=== PATIENT | female | born 1930 | race Caucasian/White ===

== ENCOUNTER 2017-12-30 17:47 | Inpatient (IN) | payer OTHER ==
[~2017-12-30] VITALS: Ht 162.6 cm; Wt 58.7 kg
[2017-12-30] MEDS ORDERED: SODIUM CHLORIDE 0.9% 1000ML 1,000 ML IV STA ×2 (18:00→18:59)
--- NOTE | 2017-12-30 18:36 | DIAGNOSTIC IMAGING REPORT ---
SINGLE VIEW CHEST CLINICAL HISTORY: Change in mental status. FINDINGS: An AP, portable, upright chest radiograph is obtained. No prior studies are available for comparison at the time of dictation. The examination is degraded by portable technique and patient rotation. The heart is top normal for projection and there is atherosclerotic calcification of the thoracic aorta. The pulmonary vasculature is noncongested. The mitral annulus is densely calcified. Nonspecific interstitial thickening is likely chronic. There is mild elevation of the right hemidiaphragm and bibasilar atelectasis. No airspace consolidation or large pleural effusion is identified. No pneumothorax is seen. The skeletal structures are osteopenic. Degenerative change and scoliosis are noted in the thoracic spine. IMPRESSION: No acute cardiopulmonary abnormality. Electronically signed by: Jesus Marinelli M.D. 12/30/2017 6:35 PM Dictated Date/Time: 12/30/2017 6:34 PM
[2017-12-30 18:40] LABS: BASO % 0.3 %; BASO ABS # 0.03 K/uL (0-0.2); EOS % 0.9 %; EOS ABS # 0.09 K/uL (0-0.5); HEMATOCRIT 45.2 % (37-47); HEMOGLOBIN 14.1 g/dL (12.0-16.0); IG# 0.03 K/uL (0.00-0.02); LYMPH % 17.4 %; LYMPH ABS # 1.79 K/uL (1.2-3.4); MEAN CELL VOLUME 90.8 fL (80-100); MEAN CORPUSCULAR HEMOGLOBIN 28.3 pg (25-34); MEAN CORPUSCULAR HGB CONC 31.2 g/dl (32-36); MEAN PLATELET VOLUME 9.9 fL (7.4-10.4); MONO ABS # 0.72 K/uL (0.11-0.59); NEUT % 74.1 %; NEUT ABS # 7.65 K/uL (1.4-6.5); PLATELET COUNT 307 K/uL (130-400); RED CELL DISTRIBUTION WIDTH CV 15.7 % (11.5-14.5); RED CELL DISTRIBUTION WIDTH SD 52.1 fL (36.4-46.3); WHITE BLOOD COUNT 10.31 K/uL (4.8-10.8)
[2017-12-30 18:54] LABS: PTT PATIENT 23.3 SECONDS (21.0-31.0)
[2017-12-30 18:57] LABS: ALBUMIN 3.6 gm/dl (3.4-5.0); ALKALINE PHOSPHATASE 154 U/L (45-117); ALT/SGPT 17 U/L (12-78); AST/SGOT 7 U/L (15-37); BLOOD UREA NITROGEN 62 mg/dl (7-18); CALCIUM 10.1 mg/dl (8.5-10.1); CARBON DIOXIDE 28 mmol/L (21-32); CREATININE 2.12 mg/dl (0.60-1.20); GLUCOSE 655 mg/dl (70-99); POTASSIUM 4.4 mmol/L (3.5-5.1); SODIUM 150 mmol/L (136-145)
[2017-12-30] MEDS ORDERED: INSULIN IV INFUSION PROTOCOL STA ×2 (18:59→22:58)
[2017-12-30] MEDS ORDERED: MODERATE STRESS LEVEL ONE ×2 (19:00→23:00)
[2017-12-30] MEDS ORDERED: INSULIN ASPART 100 UNITS/ML 3 ML PEN SC SCH (19:00)
[2017-12-30] MEDS ORDERED: DKA GOAL RANGE 150-250 mg/dl 1 EA ONE (19:00)
[2017-12-30] MEDS ORDERED: PATIENT'S ALLERGY INFO NEEDS ENTERED SCH ×2 (19:10→19:15)
[2017-12-30] MEDS ORDERED: CEFTRIAXONE SOD INJ 1 GM ADDVIAL IV STA ×2 (19:23→19:45)
--- NOTE | 2017-12-30 19:32 | DIAGNOSTIC IMAGING REPORT ---
CT SCAN OF THE BRAIN WITHOUT IV CONTRAST CLINICAL HISTORY: Change in mental status. COMPARISON STUDY: No priors. TECHNIQUE: Unenhanced axial CT scan of the brain is performed from the vertex to the skull base. A dose lowering technique was utilized adhering to the principles of ALARA. FINDINGS: Brain parenchyma: There are age-related involutional changes noting moderate patchy subcortical and periventricular microangiopathic change. There is no hemorrhage, mass effect, or evidence of acute territorial ischemia by CT criteria. Kim-white matter is preserved. No extra-axial fluid collection is seen. Mineralization is noted in the basal ganglia. Ventricles, sulci, cisterns: Prominent secondary to involutional change. Intracranial vasculature: There is atherosclerotic calcification of the cavernous carotid arteries. Calvarium: Unremarkable. Sinuses and mastoids: Fluid is noted in the right sphenoid sinus. The remaining visualized paranasal sinuses are clear. There are trace mastoid effusions. Orbits: The bony orbits are grossly intact. IMPRESSION: There is no hemorrhage, mass effect, or evidence of acute territorial ischemia by CT criteria. Electronically signed by: Jesus Marinelli M.D. 12/30/2017 7:30 PM Dictated Date/Time: 12/30/2017 7:28 PM
--- NOTE | 2017-12-30 19:54 | DIAGNOSTIC IMAGING REPORT ---
CT SCAN OF THE ABDOMEN AND PELVIS WITHOUT IV CONTRAST CLINICAL HISTORY: Generalized abdominal pain. COMPARISON STUDY: No priors. TECHNIQUE: CT scan of the abdomen and pelvis is performed from the lung bases to the proximal femora. Images are reviewed in the axial, sagittal, and coronal planes. IV contrast was not administered for this examination as per the referring clinician. Note that the examination was performed in significantly suboptimal fashion without oral and IV contrast. The examination is also degraded by streak artifact from the arms which could not be elevated above the abdomen as well as by motion artifact.. A dose lowering technique was utilized adhering to the principles of ALARA. CT DOSE: 852.75 mGy.cm FINDINGS: Lung bases: The heart is normal in size and without pericardial effusion. The coronary arteries and mitral annulus are densely calcified. The lung bases are clear. There is a small hiatal hernia. Liver: The unenhanced liver is normal in size, contour, and attenuation. There is no intrahepatic biliary ductal dilatation. Gallbladder: Unremarkable. Spleen: Normal in size and attenuation. Pancreas: The unenhanced pancreas is atrophic and grossly unremarkable. Adrenal glands: Unremarkable. Kidneys: The unenhanced kidneys are atrophic and without hydronephrosis. There is a staghorn calculus in the right kidney. This measures up to 3.0 cm in maximum dimension. Mild urothelial thickening is noted in the right renal pelvis mild stranding suggested in the adjacent fat. No left renal calculi are identified. A calcification in the right hemipelvis on image #342 is likely posterior to the right ureter. There is no clear evidence of ureteral stone. A 3.2 cm cyst arises from the lower pole of the right kidney. Abdominal vasculature: The abdominal aorta is normal in course and caliber noting advanced atherosclerotic calcification. Bowel: There is rectosigmoid fecal impaction. Moderate constipation is observed. There is moderate to advanced colonic diverticulosis without CT evidence of acute diverticulitis. No bowel obstruction is seen. The appendix is not clearly identified. 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 Peritoneum: There is no intraperitoneal free air or abdominal ascites. There is a large fat-containing umbilical hernia. A fat-containing supraumbilical hernia is also identified. Lymphadenopathy: None. Pelvic viscera: The bladder is partially decompressed and grossly unremarkable. The uterus is surgically absent. No adnexal lesion is seen. Skeletal structures: The skeletal structures are osteopenic. There is moderate lumbosacral spondylosis and scoliosis. No lytic or blastic lesions are seen. IMPRESSION: 1. Suboptimal examination without oral and IV contrast. The examination is also compromised by streak and motion artifact. 2. There is a 3.0 cm staghorn calculus identified in the right renal pelvis. No hydronephrosis is seen. There is mild associated urothelial thickening with mild stranding in the parapelvic fat. Correlate clinically and with urinalysis for evidence of superimposed urinary tract infection. 3. No left renal calculi are identified. 4. There is rectosigmoid fecal impaction and moderate constipation. No bowel obstruction is seen. 5. Moderate to advanced colonic diverticulosis without CT evidence of acute diverticulitis. 6. Additional findings as above. Electronically signed by: Jesus Marinelli M.D. 12/30/2017 7:53 PM Dictated Date/Time: 12/30/2017 7:43 PM
[2017-12-30] MEDS ORDERED: GLUCOSE 10 TABS/TUBE PO PRN (20:00)
[2017-12-30] MEDS ORDERED: GLUCOSE 40% GEL 15 GM TUBE PO PRN (20:00)
[2017-12-30] MEDS ORDERED: DEXTROSE 50% 50 ML SYR IV PRN (20:00)
[2017-12-30] MEDS ORDERED: INSULIN REGULAR 250 UNITS in SODIUM CHLORIDE 0.9% 250ML 250 ML IV SCH (20:00)
[2017-12-30] MEDS ORDERED: NovoLIN R BOLUS FROM BAG IV ONE (20:00)
[2017-12-30] MEDS ORDERED: GLUCAGON FOR INJ 1 MG VIAL SQ PRN (20:00)
[2017-12-30] MEDS ORDERED: ARC10 PO (20:27)
[2017-12-30] MEDS ORDERED: MOML PO (20:27)
[2017-12-30] MEDS ORDERED: MEMA1CAP7 PO (20:27)
[2017-12-30] MEDS ORDERED: SODIENE PR (20:27)
[2017-12-30] MEDS ORDERED: STOMAHESIVE TOP (20:27)
[2017-12-30] MEDS ORDERED: LEVO25TA5 PO (20:27)
[2017-12-30] MEDS ORDERED: INSU1INJ33 SQ (20:27)
[2017-12-30] MEDS ORDERED: RANI150T85 PO (20:27)
[2017-12-30] MEDS ORDERED: EMPA1TAB PO (20:27)
[2017-12-30] MEDS ORDERED: NVLG SQ (20:27)
[2017-12-30] MEDS ORDERED: ERGO500011 PO (20:27)
[2017-12-30] MEDS ORDERED: MENTOIN12 TOP (20:27)
[2017-12-30] MEDS ORDERED: GABA-112 PO (20:27)
[2017-12-30] MEDS ORDERED: ACET-1256 PO (20:27)
[2017-12-30] MEDS ORDERED: SENN-83 PO (20:27)
[2017-12-30] MEDS ORDERED: SITA50TA5 PO (20:27)
[2017-12-30] MEDS ORDERED: ZINC20OI TOP (20:27)
[2017-12-30] MEDS ORDERED: ATOR10TA82 PO (20:27)
[2017-12-30] MEDS ORDERED: DULO-24 PO (20:27)
[2017-12-30] MEDS ORDERED: BISA10SU7 RE (20:27)
[2017-12-30] MEDS ORDERED: ASPI81TA28 PO (20:27)
[2017-12-30] MEDS ORDERED: ACT30 PO (20:27)
[2017-12-30] MEDS ORDERED: LOSA1TAB PO (20:27)
[2017-12-30 22:15] LABS: CALCIUM 9.4 mg/dl (8.5-10.1); CREATININE 1.54 mg/dl (0.60-1.20); POTASSIUM 3.9 mmol/L (3.5-5.1)
[2017-12-30] MEDS ORDERED: SODIUM CHLORIDE 0.45% 1000ML 1,000 ML IV STA (22:59)
[2017-12-30] MEDS ORDERED: CEFEPIME IV 2,000 MG in DEXTROSE 5% 100ML 100 ML IV ONE (23:00)
[2017-12-30] MEDS ORDERED: INSULIN PROTOCOL GOAL RANGE ONE (23:00)
[2017-12-30] MEDS ORDERED: LANTUS PER UNIT CHARGE SQ STA (23:11)
[2017-12-30] MEDS ORDERED: CEFEPIME IV 2,000 MG in SYRINGE 7.5 ML IV ONE (23:15)
[2017-12-30] MEDS ORDERED: SODIUM CHLORIDE 0.9% 500ML 500 ML IV STA (23:36)
--- NOTE | 2017-12-30 23:36 | EMERGENCY ROOM VISIT NOTE ---
History Report prepared by Suzanne: Pro Tanner Under the Supervision of: Dr. Yousuf Rodney D.O. First contact with patient: 17:51 Stated Complaint: AMS History of Present Illness The patient is a 87 year old female who presents to the Emergency Room with complaints of constant altered mental status starting around 0600 this morning. Per the EMS, the patient has been responding to verbal and painful stimuli and has garbled speech. The patient's blood pressure was 60s and then 90s systolic. The patient currently lives in [facility], and per the staff there, the patient is normally awake and walking around. She usually makes sentences, though they usually do not make sense. They deny any new fever, cough, or runny nose. The history is limited secondary to altered mental status. The patient is a DNR and DNI Source of History: EMS History Limited By: AMS Onset: 0600 Position: other (global) Quality: other (altered mental status) Timing: constant Review of Systems HPI is limited secondary to altered mental status. Past Medical & Surgical History is limited secondary to altered mental status. Family History History is limited secondary to altered mental status. Social History Housing Status: senior living Occupation Status: retired Current/Historical Medications Scheduled Aspirin (Aspirin Ec), 81 MG PO DAILY Atorvastatin (Lipitor), 10 MG PO HS Bisacodyl (Bisac-Evac), 10 MG RE PRN UD Donepezil HCl (Donepezil HCl), 10 MG PO HS Duloxetine Hcl (Cymbalta), 40 MG PO DAILY Empagliflozin (Jardiance), 10 MG PO DAILY Ergocalciferol (Vitamin D 68241 Unit), 1 TAB PO 2XSMONTH Gabapentin (Neurontin), 100 MG PO QAM Insulin Aspart (Novolog), 10 UNITS SQ TODAY Insulin Degludec (Tresiba Flextouch), 15 UNIT SQ HS Levothyroxine Sodium (Levothyroxine Sodium), 1 TAB PO DAILY Losartan Potassium (Cozaar), 25 MG PO HS Magnesium Hydroxide (Milk Of Magnesia), 30 ML PO PRN UD Memantine Hcl (Namenda Xr), 28 MG PO DAILY Menthol-Zinc Oxide (Risamine), 1 APPLN TOP QS Pioglitazone (Actos), 1 TAB PO DAILY Ranitidine (Zantac), 150 MG PO HS Sennosides-Docusate Sodium (Senexon-S), 2 TABS PO HS Sitagliptin-Metformin Hcl (Janumet), 1 TAB PO BID Zinc Oxide (Topical) (Zinc Oxide), 1 APPLN TOP HS [Stomahesive Pow], 1 APPLN TOP HS Scheduled PRN Acetaminophen (Tylenol), 1,000 MG PO Q6 PRN for Pain Sodium Phosphate/Biphosphate (Fleet Enema), 1 EA SD DAILY PRN for Constipation Allergies Coded Allergies: Penicillins (Verified Allergy, Unknown, UNKNOWN, 12/30/17) Physical Exam Vital Signs Date Time Temp Pulse Resp B/P (MAP) Pulse Ox O2 Delivery O2 Flow Rate FiO2 12/30/17 22:42 58 20 97 12/30/17 22:37 60 17 94 12/30/17 22:32 60 21 95 12/30/17 22:31 126/95 12/30/17 22:30 68 12/30/17 22:27 58 17 97 12/30/17 22:22 54 13 96 12/30/17 22:17 75 14 97 12/30/17 22:12 65 14 98 Room Air 12/30/17 22:07 70 18 97 Room Air 12/30/17 22:02 77 23 81 12/30/17 22:01 136/79 12/30/17 21:57 65 18 96 12/30/17 21:52 73 15 99 12/30/17 21:47 81 16 78 12/30/17 21:42 73 17 90 12/30/17 21:37 69 18 69 12/30/17 21:32 76 15 142/71 96 12/30/17 21:31 82 16 142/71 97 12/30/17 21:27 72 25 99 12/30/17 21:22 71 17 97 12/30/17 21:17 68 15 99 12/30/17 21:12 65 19 91 12/30/17 21:07 75 19 12/30/17 21:02 67 15 110/51 94 12/30/17 20:57 74 15 81 12/30/17 20:52 76 16 87 12/30/17 20:47 66 17 96 12/30/17 20:42 79 15 92 12/30/17 20:37 67 25 96 12/30/17 20:32 69 22 12/30/17 20:31 140/56 3/14/18 20:27 68 21 12/30/17 20:26 136/87 12/30/17 20:22 71 19 92 12/30/17 20:17 68 17 96 12/30/17 20:12 68 20 93 12/30/17 20:07 66 20 94 12/30/17 20:02 70 13 94 12/30/17 19:57 68 17 93 12/30/17 19:52 71 17 94 12/30/17 19:47 75 16 93 12/30/17 19:42 79 23 96 12/30/17 19:37 93 21 97 12/30/17 19:32 66 18 90 12/30/17 19:31 12/30/17 19:07 88 19 100 12/30/17 19:02 106 26 99 12/30/17 18:57 112 17 100 12/30/17 18:52 108 22 125/62 94 Oxymask 3.0 12/30/17 18:47 117 17 96 12/30/17 18:44 112 12/30/17 18:42 124 15 96 12/30/17 18:37 117 16 93 12/30/17 18:32 101 17 94 12/30/17 18:31 125/62 12/30/17 18:30 110/57 12/30/17 18:30 114 18 110/57 97 Oxymask 3.0 12/30/17 18:27 123 19 92 12/30/17 18:22 88 17 98 12/30/17 18:18 103 12/30/17 18:17 90 16 91 12/30/17 18:16 36.8 116 24 130/61 99 Oxymask 3.0 12/30/17 18:12 121 18 87 12/30/17 18:08 130/61 Physical Exam GENERAL: Laying in bed moaning and moving the upper extremities intermittently. EYE EXAM: normal conjunctiva. PERRL and EOM's intact. OROPHARYNX: no exudate, no erythema, lips, buccal mucosa, and tongue normal and mucous membranes are moist NECK: supple, no nuchal rigidity, no adenopathy, non-tender LUNGS: Lung sounds coarse at the bases. Normal chest wall mechanics HEART: +MAX, +S1, +S2 ABDOMEN: abdomen soft, non-tender, normo-active bowel sounds, no masses, no rebound or guarding. BACK: Back is symmetrical on inspection and there is no deformity SKIN: no rashes and no bruising UPPER EXTREMITIES: upper extremities are grossly normal. LOWER EXTREMITIES: No pitting edema. NEURO EXAM: Awakens to noise and touch and moans. Intermittently states words. Moving all extremities, non-focal. Medical Decision & Procedures ER Provider Diagnostic Interpretation: Radiology results as stated below per my review and the radiologist's interpretation: CT SCAN OF THE BRAIN WITHOUT IV CONTRAST CLINICAL HISTORY: Change in mental status. COMPARISON STUDY: No priors. TECHNIQUE: Unenhanced axial CT scan of the brain is performed from the vertex to the skull base. A dose lowering technique was utilized adhering to the principles of ALARA. FINDINGS: Brain parenchyma: There are age-related involutional changes noting moderate patchy subcortical and periventricular microangiopathic change. There is no hemorrhage, mass effect, or evidence of acute territorial ischemia by CT criteria. Kim-white matter is preserved. No extra-axial fluid collection is seen. Mineralization is noted in the basal ganglia. Ventricles, sulci, cisterns: Prominent secondary to involutional change. Intracranial vasculature: There is atherosclerotic calcification of the cavernous carotid arteries. Calvarium: Unremarkable. Sinuses and mastoids: Fluid is noted in the right sphenoid sinus. The remaining visualized paranasal sinuses are clear. There are trace mastoid effusions. Orbits: The bony orbits are grossly intact. IMPRESSION: There is no hemorrhage, mass effect, or evidence of acute territorial ischemia by CT criteria. Electronically signed by: Jesus Marinelli M.D. 12/30/2017 7:30 PM Dictated Date/Time: 12/30/2017 7:28 PM SINGLE VIEW CHEST CLINICAL HISTORY: Change in mental status. FINDINGS: An AP, portable, upright chest radiograph is obtained. No prior studies are available for comparison at the time of dictation. The examination is degraded by portable technique and patient rotation. The heart is top normal for projection and there is atherosclerotic calcification of the thoracic aorta. The pulmonary vasculature is noncongested. The mitral annulus is densely calcified. Nonspecific interstitial thickening is likely chronic. There is mild elevation of the right hemidiaphragm and bibasilar atelectasis. No airspace consolidation or large pleural effusion is identified. No pneumothorax is seen. The skeletal structures are osteopenic. Degenerative change and scoliosis are noted in the thoracic spine. IMPRESSION: No acute cardiopulmonary abnormality. Electronically signed by: Jesus Marinelli M.D. 12/30/2017 6:35 PM Dictated Date/Time: 12/30/2017 6:[address] SCAN OF THE ABDOMEN AND PELVIS WITHOUT IV CONTRAST CLINICAL HISTORY: Generalized abdominal pain. COMPARISON STUDY: No priors. TECHNIQUE: CT scan of the abdomen and pelvis is performed from the lung bases to the proximal femora. Images are reviewed in the axial, sagittal, and coronal planes. IV contrast was not administered for this examination as per the referring clinician. Note that the examination was performed in significantly suboptimal fashion without oral and IV contrast. The examination is also degraded by streak artifact from the arms which could not be elevated above the abdomen as well as by motion artifact.. A dose lowering technique was utilized adhering to the principles of ALARA. CT DOSE: 852.75 mGy.cm FINDINGS: Lung bases: The heart is normal in size and without pericardial effusion. The coronary arteries and mitral annulus are densely calcified. The lung bases are clear. There is a small hiatal hernia. Liver: The unenhanced liver is normal in size, contour, and attenuation. There is no intrahepatic biliary ductal dilatation. Gallbladder: Unremarkable. Spleen: Normal in size and attenuation. Pancreas: The unenhanced pancreas is atrophic and grossly unremarkable. Adrenal glands: Unremarkable. Kidneys: The unenhanced kidneys are atrophic and without hydronephrosis. There is a staghorn calculus in the right kidney. This measures up to 3.0 cm in maximum dimension. Mild urothelial thickening is noted in the right renal pelvis mild stranding suggested in the adjacent fat. No left renal calculi are identified. A calcification in the right hemipelvis on image #342 is likely posterior to the right ureter. There is no clear evidence of ureteral stone. A 3.2 cm cyst arises from the lower pole of the right kidney. Abdominal vasculature: The abdominal aorta is normal in course and caliber noting advanced atherosclerotic calcification. Bowel: There is rectosigmoid fecal impaction. Moderate constipation is observed. There is moderate to advanced colonic diverticulosis without CT evidence of acute diverticulitis. No bowel obstruction is seen. The appendix is not clearly identified. 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 Peritoneum: There is no intraperitoneal free air or abdominal ascites. There is a large fat-containing umbilical hernia. A fat-containing supraumbilical hernia is also identified. Lymphadenopathy: None. Pelvic viscera: The bladder is partially decompressed and grossly unremarkable. The uterus is surgically absent. No adnexal lesion is seen. Skeletal structures: The skeletal structures are osteopenic. There is moderate lumbosacral spondylosis and scoliosis. No lytic or blastic lesions are seen. IMPRESSION: 1. Suboptimal examination without oral and IV contrast. The examination is also compromised by streak and motion artifact. 2. There is a 3.0 cm staghorn calculus identified in the right renal pelvis. No hydronephrosis is seen. There is mild associated urothelial thickening with mild stranding in the parapelvic fat. Correlate clinically and with urinalysis for evidence of superimposed urinary tract infection. 3. No left renal calculi are identified. 4. There is rectosigmoid fecal impaction and moderate constipation. No bowel obstruction is seen. 5. Moderate to advanced colonic diverticulosis without CT evidence of acute diverticulitis. 6. Additional findings as above. Electronically signed by: Jesus Marinelli M.D. 12/30/2017 7:53 PM Dictated Date/Time: 12/30/2017 7:43 PM Laboratory Results 12/30/17 18:00 Red Blood Count 4.98, Mean Corpuscular Volume 90.8, Mean Corpuscular Hemoglobin 28.3, Mean Corpuscular Hemoglobin Concent 31.2, Mean Platelet Volume 9.9, Neutrophils (%) (Auto) 74.1, Lymphocytes (%) (Auto) 17.4, Monocytes (%) (Auto) 7.0, Eosinophils (%) (Auto) 0.9, Basophils (%) (Auto) 0.3, Neutrophils # (Auto) 7.65, Lymphocytes # (Auto) 1.79, Monocytes # (Auto) 0.72, Eosinophils # (Auto) 0.09, Basophils # (Auto) 0.03 12/30/17 21:33 Test 12/30/17 18:00 12/30/17 18:06 12/30/17 18:47 12/30/17 19:34 White Blood Count 10.31 K/uL (4.8-10.8) Red Blood Count 4.98 M/uL (4.2-5.4) Hemoglobin 14.1 g/dL (12.0-16.0) Hematocrit 45.2 % (37-47) Mean Corpuscular Volume 90.8 fL (80-100) Mean Corpuscular Hemoglobin 28.3 pg (25-34) Mean Corpuscular Hemoglobin Concent 31.2 g/dl (32-36) Platelet Count 307 K/uL (130-400) Mean Platelet Volume 9.9 fL (7.4-10.4) Neutrophils (%) (Auto) 74.1 % Lymphocytes (%) (Auto) 17.4 % Monocytes (%) (Auto) 7.0 % Eosinophils (%) (Auto) 0.9 % Basophils (%) (Auto) 0.3 % Neutrophils # (Auto) 7.65 K/uL (1.4-6.5) Lymphocytes # (Auto) 1.79 K/uL (1.2-3.4) Monocytes # (Auto) 0.72 K/uL (0.11-0.59) Eosinophils # (Auto) 0.09 K/uL (0-0.5) Basophils # (Auto) 0.03 K/uL (0-0.2) RDW Standard Deviation 52.1 fL (36.4-46.3) RDW Coefficient of Variation 15.7 % (11.5-14.5) Immature Granulocyte % (Auto) 0.3 % Immature Granulocyte # (Auto) 0.03 K/uL (0.00-0.02) Prothrombin Time 10.3 SECONDS (9.0-12.0) Prothromb Time International Ratio 1.0 (0.9-1.1) Activated Partial Thromboplast Time 23.3 SECONDS (21.0-31.0) Partial Thromboplastin Ratio 0.9 Osmolality 379 mOsm/kg (280-300) Total Bilirubin 0.2 mg/dl (0.2-1) Direct Bilirubin < 0.1 mg/dl (0-0.2) Aspartate Amino Transf (AST/SGOT) 7 U/L (15-37) Alanine Aminotransferase (ALT/SGPT) 17 U/L (12-78) Alkaline Phosphatase 154 U/L (45-117) Troponin I < 0.015 ng/ml (0-0.045) Total Protein 8.0 gm/dl (6.4-8.2) Albumin 3.6 gm/dl (3.4-5.0) Beta-Hydroxybutyric Acid 1.68 mg/dL (0.2-2.81) Procalcitonin 0.13 ng/ml (0-0.5) Bedside Lactic Acid Venous 4.39 mmol/L (0.90-1.70) Urine Color YELLOW Urine Appearance TURBID (CLEAR) Urine pH 5.0 (4.5-7.5) Urine Specific [place] 1.031 (1.000-1.030) Urine Protein 2+ (NEG) Urine Glucose (UA) 3+ (NEG) Urine Ketones NEG (NEG) Urine Occult Blood 3+ (NEG) Urine Nitrite NEG (NEG) Urine Bilirubin NEG (NEG) Urine Urobilinogen NEG (NEG) Urine Leukocyte Esterase MODERATE (NEG) Urine WBC (Auto) >30 /hpf (0-5) Urine RBC (Auto) 10-30 /hpf (0-4) Urine Hyaline Casts (Auto) 1-5 /lpf (0-5) Urine Epithelial Cells (Auto) >30 /lpf (0-5) Urine Bacteria (Auto) 2+ (NEG) Urine Pathogenic Casts /lpf (0) Urine Yeast (Auto) BUDDING (NONE PRSENT) Bedside Glucose 402 mg/dl (70-90) Test 12/30/17 19:41 12/30/17 21:33 12/30/17 23:19 Venous Blood pH 7.31 (7.36-7.41) Venous Blood Partial Pressure CO2 60 mmHg (38.0-50.0) Venous Blood Partial Pressure O2 31 mmHg Venous Blood HCO3 30 mmol/L Venous Blood Oxygen Saturation < 60.0 % Venous Blood Base Excess 1.9 mEq/L Anion Gap 4.0 mmol/L (3-11) Est Creatinine Clear Calc Drug Dose 21.8 ml/min Estimated GFR () 34.6 Estimated GFR (Non- 29.8 BUN/Creatinine Ratio 35.3 (10-20) Lactic Acid Level 3.2 mmol/L (0.4-2.0) Calcium Level 9.4 mg/dl (8.5-10.1) Magnesium Level 3.0 mg/dl (1.8-2.4) Thyroid Stimulating Hormone (TSH) 0.686 uIu/ml (0.300-4.500) Laboratory results per my review. Medications Administered Medications (Trade) Dose Ordered Sig/Mike Route Start Time Stop Time Status Last Admin Dose Admin Sodium Chloride 1,000 ml @ 999 mls/hr Q1H1M STAT IV 12/30/17 18:00 12/30/17 19:00 DC 12/30/17 18:55 999 MLS/HR Sodium Chloride 1,000 ml @ 999 mls/hr Q1H1M STAT IV 12/30/17 18:59 12/30/17 19:59 DC 12/30/17 20:26 999 MLS/HR Ceftriaxone Sodium (Rocephin Inj) 1 gm NOW STAT IV 12/30/17 19:23 12/30/17 19:24 DC 12/30/17 20:29 1 GM Insulin Human Regular (NovoLIN R BOLUS FROM BAG) 3 unit ONE ONCE IV 12/30/17 20:00 12/30/17 20:01 DC 12/30/17 20:24 3 UNIT Insulin Human Regular 250 units/ Sodium Chloride 252.5 ml @ 0 mls/hr Q24H IV 12/30/17 20:00 01/29/18 19:59 12/30/17 20:24 4 MLS/HR ECG Per My Interpretation Indication: altered mental status Rate (beats per minute): 122 Rhythm: atrial fibrillation (with RVR) Findings: left axis deviation Change: Repeat EKG: Sinus rhythm at 91bpm. Left axis deviation. Inferior Q waves. ED Course ED COURSE: Vital signs were reviewed and showed hypoxia and tachycardia. The patients medical record was reviewed The above diagnostic studies were performed and reviewed. ED treatments and interventions as stated above. 1751: The patient was evaluated in room B10. A complete history and physical examination was performed. 1800: Sodium Chloride 1000 ml @ 999 mls/hr IV 1859: Sodium Chloride 1000 ml @ 999 mls/hr IV 1923: Rocephin 1 gm IV 2000: Insulin Human Regular Drip and Bolus 3 units 4mls/hr IV 2020: Upon reevaluation, the patient is doing okay.I discussed my findings with the patient. Based on the patients age, coexisting illnesses, exam and lab findings the decision to treat as an inpatient was made. The patient remained stable while under my care. The patient will be evaluated for further management. 2110: I reviewed the patient's case with Dr. Josiah Villafuerte Hospitalist. He will evaluate the patient for further management. Medical Decision Differential diagnoses includes but is not limited to toxic, metabolic, infectious, traumatic, cardiac, neurologic, hematologic, psychiatric and inflammatory etiologies. Patient is an 87-year-old female who presents the ER for altered mental status from the senior living. She is normally awake alert talking and walking without difficulty. She has been confused with decreased mentation and responsiveness which has been worsening since 6 AM. She is a DNR/DNI. CBC was fairly unremarkable. BMP remarkable for hypernatremia along with a creatinine of 2.1. Glucose was 655. LFTs and bilirubin are unremarkable. Troponin was negative. Lactic acid was significantly elevated at 4.4. VBG shows a pH of 7.3. UA does suggest UTI. CT of the abdomen and pelvis along with head was fairly unremarkable. Chest x-ray shows no focal infiltrate. Initially upon presentation she was slightly hypotensive. She was given 2 L normal saline. EKG went from a sinus rhythm to A. fib with RVR. Did not give rate control medications as focused on hydration and fluid correction as this improved heart rate. I did give her broad-spectrum antibiotics and accommodation with 2 L of fluid and placed on insulin drip following an insulin bolus. Patient was admitted to internal medicine with sepsis secondary to UTI and altered mental status with hyperglycemia. She did convert back to normal sinus rhythm prior to admission. She did remain hypoxic on the ER remained on 2-3 L nasal cannula. Medication Reconcilliation Current Medication List: was personally reviewed by me Blood Pressure Screening Patient's blood pressure: Elevated blood pressure Monitored by the hospitalist Consults Time Called: 2014 Consulting Physician: Dr. Josiah Villafuerte [facility]an Returned Call: 2110 I reviewed the patient's case with Dr. Josiah Lakhani. He will evaluate the patient for further management. Impression Primary Impression: Altered mental status Additional Impressions: Hyperglycemia TREE (acute kidney injury) Elevated lactic acid level Critical Care I have personally spent 75 minutes of critical care time in the direct management of this patient. This includes bedside care, interpretation of diagnostic studies, and testing, discussion with consultants, patient, and family members, and other required patient management activities. This 75 minutes is in excess of all separately billable procedures. Scribe Attestation The scribe's documentation has been prepared under my direction and personally reviewed by me in its entirety. I confirm that the note above accurately reflects all work, treatment, procedures, and medical decision making performed by me. Departure Information Dispostion Being Evaluated By Hospitalist Referrals Amparo Alvarez M.D. (PCP) Problem Qualifiers Primary Impression: Altered mental status Altered mental status type: unspecified Qualified Codes: R41.82 - Altered mental status, unspecified
[2017-12-31] VITALS (9 sets, daily range): BP systolic 111–143; BP diastolic 50–90; PULSE 56–65; TEMP 36.3–36.5; O2SAT 93–100; BMI 22.2
[2017-12-31] MEDS ORDERED: DEXTROSE 50% 50 ML SYR IV PRN (01:00)
[2017-12-31] MEDS ORDERED: NITROGLYCERIN 0.4 MG SL PER TAB CHARGE SL PRN (01:00)
[2017-12-31] MEDS: SODIUM CHLORIDE 0.45% 1000ML 1,000 ML IV SCH ×2 (01:00→01:15)
[2017-12-31] MEDS ORDERED: ACETAMINOPHEN 325 MG TAB PO PRN (01:00)
[2017-12-31] MEDS ORDERED: HYDROmorphone INJ 0.5 MG/0.5 ML SYR IV PRN (01:00)
[2017-12-31] MEDS ORDERED: GLUCAGON FOR INJ 1 MG VIAL SQ PRN (01:00)
[2017-12-31] MEDS ORDERED: GLUCOSE 10 TABS/TUBE PO PRN (01:00)
[2017-12-31] MEDS ORDERED: TRAMADOL HCL 50 MG TAB PO PRN (01:00)
[2017-12-31] MEDS ORDERED: GLUCOSE 40% GEL 15 GM TUBE PO PRN (01:00)
[2017-12-31] MEDS ORDERED: PROCHLORPERAZINE INJ 5 MG in SYRINGE 4 ML IV PRN (01:00)
[2017-12-31] MEDS ORDERED: INSULIN ASPART 100 UNITS/ML 3 ML PEN SC ONE (02:15)
[2017-12-31 03:30] LABS: BASO % 0.4 %; BASO ABS # 0.04 K/uL (0-0.2); EOS % 2.1 %; EOS ABS # 0.22 K/uL (0-0.5); HEMATOCRIT 41.2 % (37-47); HEMOGLOBIN 13.3 g/dL (12.0-16.0); IG# 0.03 K/uL (0.00-0.02); LYMPH % 16.3 %; LYMPH ABS # 1.69 K/uL (1.2-3.4); MEAN CELL VOLUME 88.4 fL (80-100); MEAN CORPUSCULAR HEMOGLOBIN 28.5 pg (25-34); MEAN CORPUSCULAR HGB CONC 32.3 g/dl (32-36); MONO % 10.1 %; MONO ABS # 1.05 K/uL (0.11-0.59); NEUT % 70.8 %; NEUT ABS # 7.37 K/uL (1.4-6.5); PLATELET COUNT 212 K/uL (130-400); RED CELL DISTRIBUTION WIDTH CV 15.8 % (11.5-14.5); RED CELL DISTRIBUTION WIDTH SD 50.5 fL (36.4-46.3)
[2017-12-31 03:41] LABS: CALCIUM 8.7 mg/dl (8.5-10.1); CREATININE 1.14 mg/dl (0.60-1.20)
[2017-12-31] MEDS: LEVOTHYROXINE 25 MCG TAB PO SCH (06:38)
[2017-12-31] MEDS: HEPARIN SOD 5000 UNIT/0.5 ML CARP SQ SCH ×3 (06:38→22:54)
[2017-12-31 06:51] LABS: HEMOGLOBIN A1C 9.9 % (4.5-5.6)
[2017-12-31] MEDS: INSULIN ASPART 100 UNITS/ML 3 ML PEN SC SCH ×4 (08:10→21:00)
[2017-12-31] MEDS: DULOXETINE HCL 20 MG CAP PO SCH (08:12)
[2017-12-31] MEDS: ASPIRIN 81 MG ECTAB PO SCH (08:13)
[2017-12-31] MEDS ORDERED: INSULIN ASPART 100 UNITS/ML 3 ML PEN SC SCH (09:00)
[2017-12-31] MEDS ORDERED: INSULIN GLARGINE SOLOSTAR 100 UNITS/ML 3 ML PEN SC SCH (09:00)
[2017-12-31] MEDS ORDERED: CEFEPIME CONSULT ACTIVE PRN (09:00)
[2017-12-31 09:15] LABS: CREATININE 1.07 mg/dl (0.60-1.20); POTASSIUM 4.1 mmol/L (3.5-5.1)
[2017-12-31] MEDS: INSULIN GLARGINE SOLOSTAR 100 UNITS/ML 3 ML PEN SC SCH ×2 (10:15→21:18)
--- NOTE | 2017-12-31 10:47 | HISTORY & PHYSICAL EXAMINATION ---
DATE OF ADMISSION: 12/31/2017 PRIMARY CARE DOCTOR: Dr. Alvarez. HISTORY OF PRESENT ILLNESS: History obtained from patient, [place] [facility] staff, and records. Limited history obtained from patient secondary to demented state. Patient is a [facility] resident. 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 As per notes, yesterday, the patient noted to be lethargic, decreased appetite, noted to be pale. Blood sugars noted to be high. Blood pressure 60s-90s. Patient brought to Emergency Room. Blood sugars noted to be 587. The patient received ceftriaxone for possible UTI, IV insulin started for hyperglycemia. MEDICAL HISTORY: As above. SURGERIES: Cannot be obtained. HOME MEDICATIONS: Include Tylenol, atorvastatin, gabapentin, insulin, losartan, Tarceva, sitagliptin. ALLERGIES: PENICILLIN. FAMILY HISTORY: Could not be obtained. PERSONAL SOCIAL HISTORY: [facility] resident. REVIEW OF SYSTEMS: Could not be obtained. PHYSICAL EXAMINATION: VITAL SIGNS: Blood pressure was noted to be 130/61, pulse rate noted to be 68, RR 18, temperature 36.6, sats 98 on room air. GENERAL: Noted to be demented, no respiratory distress. SKIN: Normal color, warm. HEENT: Pale palpebral conjunctivae, no ptosis. Dry mucosa. NECK: Supple, nontender. CHEST: Decreased effort. Nontender. HEART: Regular rate and rhythm, no murmur. ABDOMEN: Some distention, nontender. EXTREMITIES: No edema, no gross tenderness. No tenderness NEUROLOGIC: Demented. No facial symmetry . mild hearing impairment. LABORATORY DATA: Hemoglobin was noted to be 14.1, hematocrit 41.2, white cell count 10.31, platelets 307. Sodium noted to be 136, potassium 3.9, chloride 101, CO2 30, crea 2.12, glucose 655, normal anion gap, no serum ketones serum osmolarity was noted to be 379. Hemoglobin A1c 9.9. CT head, no acute pathology. Chest x-ray, no acute pulmonary findings. CT of the pelvis initial read staghorn calculi right, no hydronephrosis UA WBC esterase, blood, budding yeast, epithelial cells, no ketones ASSESSMENT: 1. Hyperglycemic hyperosmolar syndrome. DM2, insulin requiring Suboptimal control as of recent hemoglobin A1c. 2. complicated urinary tract infection, no sepsis 3. Hypernatremia, acute renal failure 2 to illness 4. Delirium on dementia secondary all of above 5. Hypertension, stable. PLAN: PCU. IV fluid. Transition IV insulin to SQ once BSG less than 200 ISS BG goal 140-180 May benefit from Pharmacy glycemic control. Follow urine CS, IV Cefepime for now Follow serum sodium, creatinine; 0.45 NS for now Hold home ARB until creatinine at baseline. DVT prophylaxis, Heparin subQ. DNR as per prior [place] [facility] directives. MTDD
--- NOTE | 2017-12-31 11:37 | Progress Note ---
Medicine Progress Note Date & Time of Visit: Dec 31, 2017 at 11:06. Subjective Pt was seen and examined Lying in bed confused No chest pain Objective Last 8 Hrs Date Time Temp Pulse Resp B/P (MAP) Pulse Ox O2 Delivery O2 Flow Rate FiO2 12/31/17 08:00 99 Room Air 12/31/17 07:57 36.5 59 20 143/65 (91) 98 Room Air 12/31/17 04:57 36.4 65 20 142/74 (96) 100 Room Air 12/31/17 04:00 Room Air Physical Exam: General- No acute distress Head- atraumatic Eyes- PERRL, EOMI ENT- oropharynx clear Neck- supple, no JVD Lungs- Poor air entry Heart- regular rhythm Abdomen- normal bowel sound Extremities- no calf tenderness Neuro- demented Skin- warm & dry Laboratory Results: Last 24 Hours Test 12/30/17 17:58 12/30/17 18:00 12/30/17 18:06 12/30/17 18:47 Bedside Glucose 587 mg/dl White Blood Count 10.31 K/uL Red Blood Count 4.98 M/uL Hemoglobin 14.1 g/dL Hematocrit 45.2 % Mean Corpuscular Volume 90.8 fL Mean Corpuscular Hemoglobin 28.3 pg Mean Corpuscular Hemoglobin Concent 31.2 g/dl Platelet Count 307 K/uL Mean Platelet Volume 9.9 fL Neutrophils (%) (Auto) 74.1 % Lymphocytes (%) (Auto) 17.4 % Monocytes (%) (Auto) 7.0 % Eosinophils (%) (Auto) 0.9 % Basophils (%) (Auto) 0.3 % Neutrophils # (Auto) 7.65 K/uL Lymphocytes # (Auto) 1.79 K/uL Monocytes # (Auto) 0.72 K/uL Eosinophils # (Auto) 0.09 K/uL Basophils # (Auto) 0.03 K/uL RDW Standard Deviation 52.1 fL RDW Coefficient of Variation 15.7 % Immature Granulocyte % (Auto) 0.3 % Immature Granulocyte # (Auto) 0.03 K/uL Prothrombin Time 10.3 SECONDS Prothromb Time International Ratio 1.0 Activated Partial Thromboplast Time 23.3 SECONDS Partial Thromboplastin Ratio 0.9 Sodium Level 150 mmol/L Potassium Level 4.4 mmol/L Chloride Level 112 mmol/L Carbon Dioxide Level 28 mmol/L Anion Gap 10.0 mmol/L Blood Urea Nitrogen 62 mg/dl Creatinine 2.12 mg/dl Est Creatinine Clear Calc Drug Dose 15.8 ml/min Estimated GFR () 23.5 Estimated GFR (Non- 20.3 BUN/Creatinine Ratio 29.2 Random Glucose 655 mg/dl Estimated Average Glucose 237 mg/dl Hemoglobin A1c 9.9 % Osmolality 379 mOsm/kg Calcium Level 10.1 mg/dl Total Bilirubin 0.2 mg/dl Direct Bilirubin < 0.1 mg/dl Aspartate Amino Transf (AST/SGOT) 7 U/L Alanine Aminotransferase (ALT/SGPT) 17 U/L Alkaline Phosphatase 154 U/L Troponin I < 0.015 ng/ml Total Protein 8.0 gm/dl Albumin 3.6 gm/dl Beta-Hydroxybutyric Acid 1.68 mg/dL Procalcitonin 0.13 ng/ml Bedside Lactic Acid Venous 4.39 mmol/L Urine Color YELLOW Urine Appearance TURBID Urine pH 5.0 Urine Specific [place] 1.031 Urine Protein 2+ Urine Glucose (UA) 3+ Urine Ketones NEG Urine Occult Blood 3+ Urine Nitrite NEG Urine Bilirubin NEG Urine Urobilinogen NEG Urine Leukocyte Esterase MODERATE Urine WBC (Auto) >30 /hpf Urine RBC (Auto) 10-30 /hpf Urine Hyaline Casts (Auto) 1-5 /lpf Urine Epithelial Cells (Auto) >30 /lpf Urine Bacteria (Auto) 2+ Urine Pathogenic Casts /lpf Urine Yeast (Auto) BUDDING Test 12/30/17 19:06 12/30/17 19:34 12/30/17 19:41 12/30/17 21:16 Lactic Acid Level mmol/L Bedside Glucose 402 mg/dl 266 mg/dl Venous Blood pH 7.31 Venous Blood Partial Pressure CO2 60 mmHg Venous Blood Partial Pressure O2 31 mmHg Venous Blood HCO3 30 mmol/L Venous Blood Oxygen Saturation < 60.0 % Venous Blood Base Excess 1.9 mEq/L Test 12/30/17 21:33 12/30/17 22:29 12/30/17 23:19 12/30/17 23:44 Sodium Level 156 mmol/L Potassium Level 3.9 mmol/L Chloride Level 121 mmol/L Carbon Dioxide Level 30 mmol/L Anion Gap 4.0 mmol/L Blood Urea Nitrogen 54 mg/dl Creatinine 1.54 mg/dl Est Creatinine Clear Calc Drug Dose 21.8 ml/min Estimated GFR () 34.6 Estimated GFR (Non- 29.8 BUN/Creatinine Ratio 35.3 Random Glucose 282 mg/dl Lactic Acid Level 3.2 mmol/L Calcium Level 9.4 mg/dl Magnesium Level 3.0 mg/dl Thyroid Stimulating Hormone (TSH) 0.686 uIu/ml Bedside Glucose 192 mg/dl 170 mg/dl Arterial Blood pH 7.44 Arterial Blood Partial Pressure CO2 41 mmHg Arterial Blood Partial Pressure O2 87 mm/Hg Arterial Blood HCO3 27 mmol/L Arterial Blood Oxygen Saturation 96.5 % Arterial Blood Base Excess 2.3 mEq/L Arterial Blood Gas Delivery RA Bridger Test POS Test 12/31/17 00:42 12/31/17 02:06 12/31/17 02:55 12/31/17 04:05 Bedside Glucose 98 mg/dl 95 mg/dl White Blood Count 10.40 K/uL Red Blood Count 4.66 M/uL Hemoglobin 13.3 g/dL Hematocrit 41.2 % Mean Corpuscular Volume 88.4 fL Mean Corpuscular Hemoglobin 28.5 pg Mean Corpuscular Hemoglobin Concent 32.3 g/dl Platelet Count 212 K/uL Mean Platelet Volume 9.0 fL Neutrophils (%) (Auto) 70.8 % Lymphocytes (%) (Auto) 16.3 % Monocytes (%) (Auto) 10.1 % Eosinophils (%) (Auto) 2.1 % Basophils (%) (Auto) 0.4 % Neutrophils # (Auto) 7.37 K/uL Lymphocytes # (Auto) 1.69 K/uL Monocytes # (Auto) 1.05 K/uL Eosinophils # (Auto) 0.22 K/uL Basophils # (Auto) 0.04 K/uL RDW Standard Deviation 50.5 fL RDW Coefficient of Variation 15.8 % Immature Granulocyte % (Auto) 0.3 % Immature Granulocyte # (Auto) 0.03 K/uL Sodium Level 156 mmol/L Potassium Level mmol/L 3.8 mmol/L Chloride Level 123 mmol/L Carbon Dioxide Level 28 mmol/L Anion Gap 4.0 mmol/L Blood Urea Nitrogen 45 mg/dl Creatinine 1.14 mg/dl Est Creatinine Clear Calc Drug Dose 29.5 ml/min Estimated GFR () 49.7 Estimated GFR (Non- 42.9 BUN/Creatinine Ratio 39.7 Random Glucose 84 mg/dl Calcium Level 8.7 mg/dl Test 12/31/17 06:48 12/31/17 08:29 Bedside Glucose 85 mg/dl Sodium Level 154 mmol/L Potassium Level 4.1 mmol/L Chloride Level 121 mmol/L Carbon Dioxide Level 27 mmol/L Anion Gap 6.0 mmol/L Blood Urea Nitrogen 43 mg/dl Creatinine 1.07 mg/dl Est Creatinine Clear Calc Drug Dose 31.4 ml/min Estimated GFR () 53.7 Estimated GFR (Non- 46.3 BUN/Creatinine Ratio 39.7 Random Glucose 116 mg/dl Lactic Acid Level 2.5 mmol/L Calcium Level 9.0 mg/dl Date/Time Source Procedure Growth Status 12/31/17 00:00 Nasal MRSA DNA Surveillance Screen - Final Specimen Negative for MRSA by DNA Probe Complete 12/30/17 18:47 Urine,Catheterized Urine Culture Pending Received Assessment & Plan Altered mental status Meet sepsis criteria on admission Tachycardia, RR24, elevated lactic acid, positive UA) Possible related to UTI vs Hyperglycemia hyperosmolar syndrome lactic acid on admission 3.2 with normal procalcitonin Received IVF and ceftriaxone in the ER Continue ceftriaxone Blood cx and urine cx pending Vital sign stable Continue monitor Hyperglycemia hyperosmolar syndrome BS on admission above 600 Received IVF Received regular insulin On Lantus Sub BID Continue monitor BS Acute renal failure Mostly related to hypovolemia Received IVF Creatine wnl Resolved Hypernatremia Related to low volume Na on admission 150 Received IVF then Na increase to 156 On 1/2 NS IVF Continue monitor Na Diabetes type 2 Recent Hba1c 9.9 Uncontrolled Will need better diabetic control monitor BS HTN Losartan on hold due to TREE BP stable Hypothyroidism Continue levothyroxine DVT px on heparin sub Code Status DNR Disposition Continue tele monitor Current Inpatient Medications: Current Inpatient Medications Medications (Trade) Dose Ordered Sig/Mike Route Start Time Stop Time Status Last Admin Dose Admin Glucose (Glucose 40% Gel) 15-30 GRAMS 15 GRAMS... UD PRN PO 12/30/17 20:00 01/29/18 19:59 Glucose (Glucose Chew Tab) 4-8 Tablets 4 Tabl... UD PRN PO 12/30/17 20:00 01/29/18 19:59 Dextrose (Dextrose 50% 50ML Syringe) 25-50ML OF 50% DW IV FOR... UD PRN IV 12/30/17 20:00 01/29/18 19:59 Glucagon (Glucagon Inj) 1 mg UD PRN SQ 12/30/17 20:00 01/29/18 19:59 Heparin Sodium (Porcine) (Heparin Sq 5000 Unit/0.5ml) 5,000 unit Q8 SQ 12/31/17 06:00 01/30/18 05:59 12/31/17 06:38 5,000 UNIT Sodium Chloride 1,000 ml @ 100 mls/hr Q10H IV 12/31/17 00:54 01/30/18 00:53 12/31/17 01:15 100 MLS/HR Acetaminophen (Tylenol Tab) 650 mg Q4H PRN PO 12/31/17 01:00 01/30/18 00:59 Nitroglycerin (Nitrostat Tab) 0.4 mg UD PRN SL 12/31/17 01:00 01/30/18 00:59 Insulin Aspart (novoLOG ASPART) SLIDING SCALE If C... ACHS SC 12/31/17 07:00 01/30/18 06:59 Hydromorphone HCl (Dilaudid Inj) 0.5 mg Q3H PRN IV 12/31/17 01:00 01/14/18 00:59 Prochlorperazine Edisylate 5 mg/ Syringe 5 ml @ 5 mls/min Q6H PRN IV 12/31/17 01:00 01/30/18 00:59 Tramadol HCl (Ultram Tab) 25 mg Q6H PRN PO 12/31/17 01:00 01/30/18 00:59 Aspirin (Ecotrin Tab) 81 mg DAILY PO 12/31/17 09:00 01/30/18 08:59 12/31/17 08:13 81 MG Donepezil HCl (Aricept Tab) 10 mg HS PO 12/31/17 21:00 01/30/18 20:59 Duloxetine HCl (Cymbalta Cap) 40 mg DAILY PO 12/31/17 09:00 01/30/18 08:59 12/31/17 08:12 40 MG Levothyroxine Sodium (Synthroid Tab) 25 mcg DAILYBB PO 12/31/17 06:00 01/30/18 05:59 12/31/17 06:38 25 MCG Ranitidine HCl (zANTac TAB) 150 mg HS PO 12/31/17 21:00 01/30/18 20:59 Senna/Docusate Sodium (Senokot S Tab) 2 tab HS PO 12/31/17 21:00 01/30/18 20:59 Miscellaneous Information (Order Awaiting Action) 1 ea QS N/A 12/31/17 08:00 01/30/18 07:59 Cefepime HCl (Consult) 1 ea UD PRN N/A 12/31/17 09:00 01/30/18 08:59 Cefepime HCl 1000 mg/Syringe 11 ml @ 5.5 mls/min Q24H IV 12/31/17 23:00 01/08/18 23:01 Insulin Glargine (Lantus Solostar Pen) 10 units BID SC 12/31/17 10:15 01/30/18 10:14
[2017-12-31] MEDS: DONEPEZIL HCL 10 MG TAB PO SCH (21:14)
[2017-12-31] MEDS: DOCUSATE SODIUM/SENNA 50/8.6MG TAB PO SCH (21:14)
[2017-12-31] MEDS: RANITIDINE HCL 150 MG TAB PO SCH (21:14)
[2017-12-31] MEDS ORDERED: OLANZAPINE 10 MG/2.1 ML SDV IM STA (22:05)
[2017-12-31] MEDS ORDERED: CEFEPIME IV 1,000 MG in SYRINGE 0 ML IV SCH (23:00)
--- NOTE | 2017-12-31 23:18 | Progress Note ---
Internal Med Progress Note Date of Service: Dec 31, 2017. 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 Patient pulling out IV lines. [facility] delirium [facility] Transfer to minimize sleep disruption. Zyprexa prn agitation Change IV Cefepime to IV Ceftriaxone to facilitate IM administration if IV access not available. AM provider may need to confer w/ patient guardian from Office Area of Aging regarding comfort measures for patient if patient continues to be uncooperative and unyielding to current medical care. Vital Signs: Date Time Temp Pulse Resp B/P (MAP) Pulse Ox O2 Delivery O2 Flow Rate FiO2 01/01/18 02:11 91 Room Air 01/01/18 01:55 36.6 94 18 143/65 (91) 91 Room Air 01/01/18 01:33 36.4 56 20 95 3.0 01/01/18 00:01 95 Room Air 12/31/17 23:22 36.4 56 20 135/90 (105) 12/31/17 20:52 36.3 62 18 115/50 (71) 95 Room Air 12/31/17 20:00 96 Room Air 3.0 12/31/17 16:00 Room Air 12/31/17 15:23 36.4 59 20 111/59 (76) 96 Room Air 12/31/17 12:00 Room Air 12/31/17 11:58 36.5 62 20 121/69 (86) 98 Room Air 12/31/17 08:00 99 Room Air 12/31/17 07:57 36.5 59 20 143/65 (91) 98 Room Air Lab Results: Results Past 24 Hours Test 12/31/17 06:48 12/31/17 08:29 12/31/17 11:55 12/31/17 17:08 Range/Units Bedside Glucose 85 91 64 70-90 mg/dl Sodium Level 154 136-145 mmol/L Potassium Level 4.1 3.5-5.1 mmol/L Chloride Level 121 98-107 mmol/L Carbon Dioxide Level 27 21-32 mmol/L Anion Gap 6.0 3-11 mmol/L Blood Urea Nitrogen 43 7-18 mg/dl Creatinine 1.07 0.60-1.20 mg/dl Est Creatinine Clear Calc Drug Dose 31.4 ml/min Estimated GFR () 53.7 Estimated GFR (Non- 46.3 BUN/Creatinine Ratio 39.7 10-20 Random Glucose 116 70-99 mg/dl Lactic Acid Level 2.5 0.4-2.0 mmol/L Calcium Level 9.0 8.5-10.1 mg/dl Test 12/31/17 17:25 12/31/17 17:42 12/31/17 19:24 12/31/17 20:29 Range/Units Bedside Glucose 60 112 116 70-90 mg/dl Lactic Acid Level 2.9 0.4-2.0 mmol/L Test 01/01/18 04:44 Range/Units
[2018-01-01] VITALS (7 sets, daily range): BP systolic 135–163; BP diastolic 62–90; PULSE 56–94; TEMP 36.3–36.6; O2SAT 91–97; Ht 162.6 cm; Wt 58.7 kg
[2018-01-01] MEDS ORDERED: CEFEPIME IV 2,000 MG in SYRINGE 7.5 ML IV SCH
[2018-01-01] MEDS ORDERED: CEFTRIAXONE SOD IM 1,000 MG in SYRINGE 0 ML IM SCH
[2018-01-01] MEDS: SODIUM CHLORIDE 0.45% 1000ML 1,000 ML IV SCH ×2 (00:52→06:27)
[2018-01-01] MEDS: CEFTRIAXONE SOD INJ 1 GM in DEXTROSE 5% ADD-VANTAGE 50ML 50 ML IV SCH (01:22)
[2018-01-01] MEDS: LEVOTHYROXINE 25 MCG TAB PO SCH (05:45)
[2018-01-01] MEDS: HEPARIN SOD 5000 UNIT/0.5 ML CARP SQ SCH ×3 (05:51→21:25)
[2018-01-01] MEDS ORDERED: NURSING VERBAL MED ORDER ONE (06:30)
[2018-01-01 07:29] LABS: BASO % 0.2 %; BASO ABS # 0.02 K/uL (0-0.2); EOS % 5.8 %; EOS ABS # 0.47 K/uL (0-0.5); HEMATOCRIT 40.8 % (37-47); IG# 0.03 K/uL (0.00-0.02); LYMPH % 28.4 %; LYMPH ABS # 2.31 K/uL (1.2-3.4); MEAN CELL VOLUME 88.7 fL (80-100); MEAN CORPUSCULAR HEMOGLOBIN 28.3 pg (25-34); MEAN CORPUSCULAR HGB CONC 31.9 g/dl (32-36); MONO % 7.6 %; MONO ABS # 0.62 K/uL (0.11-0.59); NEUT % 57.6 %; NEUT ABS # 4.68 K/uL (1.4-6.5); PLATELET COUNT 196 K/uL (130-400); RED CELL DISTRIBUTION WIDTH CV 15.5 % (11.5-14.5); WHITE BLOOD COUNT 8.13 K/uL (4.8-10.8)
[2018-01-01 07:57] LABS: CALCIUM 8.4 mg/dl (8.5-10.1); CREATININE 0.81 mg/dl (0.60-1.20); POTASSIUM 3.7 mmol/L (3.5-5.1)
[2018-01-01] MEDS: INSULIN ASPART 100 UNITS/ML 3 ML PEN SC SCH ×4 (08:00→21:24)
[2018-01-01] MEDS ORDERED: SODIUM CHLOR 0.45% + 20MEQ KCL 1,000 ML IV ONE (08:15)
[2018-01-01] MEDS: DULOXETINE HCL 20 MG CAP PO SCH (08:38)
[2018-01-01] MEDS: ASPIRIN 81 MG ECTAB PO SCH (08:38)
[2018-01-01] MEDS: GABAPENTIN 100 MG CAP PO SCH (08:42)
[2018-01-01] MEDS: LOSARTAN POTASSIUM 25 MG TAB PO SCH (08:42)
[2018-01-01] MEDS ORDERED: D5W AND 1/2NSS + 20MEQ KCL 1,000 ML IV SCH (10:00)
--- NOTE | 2018-01-01 10:42 | Clinical Documentation Query ---
CLINICAL DOCUMENTATION QUERY 87 year old female who presents to the Emergency Room with complaints of constant altered mental status. In your clinical opinion is this patient being managed for: ( ) Metabolic encephalopathy in setting of Sepsis, HHS, ARF, Hypernatremia, & UTI. ( ) Not Agree ( ) Other explanation of clinical findings (Please Explain) ( ) Unable to determine (Please Define) ( ) Need to Discuss The medical record reflects the following clinical findings, treatment, and risk factors. Clinical Indicators: VBG pH 7.31, serum glucose 655, Sodium 150, Lactic acid 4.39, hypoxia 87% Treatment: IVF boluses, IV insulin gtt, IV Ceftriaxone, Head CT Risk Factors: Age, HHS, hypernatremia, UTI, lactic acidosis, hypoxia. Please clarify and document your clinical opinion in the progress notes and discharge summary. Terms such as "probable", "suspected", "likely", "questionable", "possible", or "still to be ruled out" are acceptable. IF IN AGREEMENT, YOU MUST DOCUMENT ABOVE DIAGNOSTIC STATEMENT IN DAILY PROGRESS NOTES AND DISCHARGE SUMMARY. This document is not part of the patient's record. Thank You, Julio Kuhn, RN [phone]
--- NOTE | 2018-01-01 19:21 | Progress Note ---
Medicine Progress Note Date & Time of Visit: Jan 01, 2018 at 19:15. Subjective Pt was seen and examined Lying in bed with no distress Has been very calm, no agitation today good appetite Blood sugar was low this morning Objective Last 8 Hrs Date Time Temp Pulse Resp B/P (MAP) Pulse Ox O2 Delivery O2 Flow Rate FiO2 01/01/18 16:00 Room Air 01/01/18 15:53 36.4 65 16 137/62 (87) 97 Room Air Physical Exam: General- No acute distress Head- atraumatic Eyes- PERRL, EOMI ENT- oropharynx clear Neck- supple, no JVD Lungs- Poor air entry Heart- regular rhythm Abdomen- normal bowel sound Extremities- no calf tenderness Neuro- demented Skin- warm & dry Laboratory Results: Last 24 Hours Test 12/31/17 19:24 12/31/17 20:29 01/01/18 07:07 01/01/18 08:28 Lactic Acid Level 2.9 mmol/L 2.4 mmol/L Bedside Glucose 116 mg/dl White Blood Count 8.13 K/uL Red Blood Count 4.60 M/uL Hemoglobin 13.0 g/dL Hematocrit 40.8 % Mean Corpuscular Volume 88.7 fL Mean Corpuscular Hemoglobin 28.3 pg Mean Corpuscular Hemoglobin Concent 31.9 g/dl Platelet Count 196 K/uL Mean Platelet Volume 9.0 fL Neutrophils (%) (Auto) 57.6 % Lymphocytes (%) (Auto) 28.4 % Monocytes (%) (Auto) 7.6 % Eosinophils (%) (Auto) 5.8 % Basophils (%) (Auto) 0.2 % Neutrophils # (Auto) 4.68 K/uL Lymphocytes # (Auto) 2.31 K/uL Monocytes # (Auto) 0.62 K/uL Eosinophils # (Auto) 0.47 K/uL Basophils # (Auto) 0.02 K/uL RDW Standard Deviation 50.0 fL RDW Coefficient of Variation 15.5 % Immature Granulocyte % (Auto) 0.4 % Immature Granulocyte # (Auto) 0.03 K/uL Sodium Level 147 mmol/L Potassium Level 3.7 mmol/L Chloride Level 113 mmol/L Carbon Dioxide Level 25 mmol/L Anion Gap 8.0 mmol/L Blood Urea Nitrogen 24 mg/dl Creatinine 0.81 mg/dl Est Creatinine Clear Calc Drug Dose 41.5 ml/min Estimated GFR () 75.2 Estimated GFR (Non- 64.8 BUN/Creatinine Ratio 30.1 Random Glucose 58 mg/dl Calcium Level 8.4 mg/dl Test 01/01/18 08:31 01/01/18 08:55 01/01/18 09:16 01/01/18 09:42 Bedside Glucose 55 mg/dl 51 mg/dl 57 mg/dl 36 mg/dl Test 01/01/18 10:01 01/01/18 10:44 01/01/18 12:15 01/01/18 17:45 Random Glucose 180 mg/dl Bedside Glucose 150 mg/dl 183 mg/dl 174 mg/dl Assessment & Plan Altered mental status Meet sepsis criteria on admission Tachycardia, RR24, elevated lactic acid, positive UA) Possible related to UTI vs Hyperglycemia hyperosmolar syndrome lactic acid on admission 3.2 with normal procalcitonin Received IVF and ceftriaxone in the ER Onn ceftriaxone Blood cx no grow urine cx grew Group b beta strep Vital sign stable Continue monitor Hyperglycemia hyperosmolar syndrome BS on admission above 600 Received IVF Received regular insulin On Lantus Sub BID Continue monitor BS 01/01 Hypoglycemia staring on D5 1/2NS Insulin on hold will consult pharmacy for glycemic management Continue monitor BS Acute renal failure Mostly related to hypovolemia Received IVF Creatine wnl Resolved Hypernatremia Related to low volume Na on admission 150 Received IVF then Na increase to 156 Na improved Continue monitor Na Diabetes type 2 Recent Hba1c 9.9 Uncontrolled Will need better diabetic control Episode of hypoglycemia monitor BS HTN Losartan on hold due to TREE BP stable Hypothyroidism Continue levothyroxine DVT px on heparin sub Code Status DNR Disposition Continue tele monitor Current Inpatient Medications: Current Inpatient Medications Medications (Trade) Dose Ordered Sig/Mike Route Start Time Stop Time Status Last Admin Dose Admin Glucose (Glucose 40% Gel) 15-30 GRAMS 15 GRAMS... UD PRN PO 12/30/17 20:00 01/29/18 19:59 Glucose (Glucose Chew Tab) 4-8 Tablets 4 Tabl... UD PRN PO 12/30/17 20:00 01/29/18 19:59 Dextrose (Dextrose 50% 50ML Syringe) 25-50ML OF 50% DW IV FOR... UD PRN IV 12/30/17 20:00 01/29/18 19:59 01/01/18 09:59 25 ML Glucagon (Glucagon Inj) 1 mg UD PRN SQ 12/30/17 20:00 01/29/18 19:59 Heparin Sodium (Porcine) (Heparin Sq 5000 Unit/0.5ml) 5,000 unit Q8 SQ 12/31/17 06:00 01/30/18 05:59 01/01/18 13:45 5,000 UNIT Acetaminophen (Tylenol Tab) 650 mg Q4H PRN PO 12/31/17 01:00 01/30/18 00:59 Nitroglycerin (Nitrostat Tab) 0.4 mg UD PRN SL 12/31/17 01:00 01/30/18 00:59 Insulin Aspart (novoLOG ASPART) SLIDING SCALE If C... ACHS SC 12/31/17 07:00 01/30/18 06:59 01/01/18 18:55 1 UNITS Hydromorphone HCl (Dilaudid Inj) 0.5 mg Q3H PRN IV 12/31/17 01:00 01/14/18 00:59 Prochlorperazine Edisylate 5 mg/ Syringe 5 ml @ 5 mls/min Q6H PRN IV 12/31/17 01:00 01/30/18 00:59 Tramadol HCl (Ultram Tab) 25 mg Q6H PRN PO 12/31/17 01:00 01/30/18 00:59 Aspirin (Ecotrin Tab) 81 mg DAILY PO 12/31/17 09:00 01/30/18 08:59 01/01/18 08:38 81 MG Donepezil HCl (Aricept Tab) 10 mg HS PO 12/31/17 21:00 01/30/18 20:59 12/31/17 21:14 10 MG Duloxetine HCl (Cymbalta Cap) 40 mg DAILY PO 12/31/17 09:00 01/30/18 08:59 01/01/18 08:38 40 MG Levothyroxine Sodium (Synthroid Tab) 25 mcg DAILYBB PO 12/31/17 06:00 01/30/18 05:59 01/01/18 05:45 25 MCG Ranitidine HCl (zANTac TAB) 150 mg HS PO 12/31/17 21:00 01/30/18 20:59 12/31/17 21:14 150 MG Senna/Docusate Sodium (Senokot S Tab) 2 tab HS PO 12/31/17 21:00 01/30/18 20:59 12/31/17 21:14 2 TAB Miscellaneous Information (Order Awaiting Action) 1 ea QS N/A 12/31/17 08:00 01/30/18 07:59 Ceftriaxone Sodium 1 gm/ Dextrose 50 ml @ 100 mls/hr Q24H IV 01/01/18 01:00 01/11/18 00:59 01/01/18 01:22 100 MLS/HR Insulin Glargine (Lantus Solostar Pen) 10 units HS SC 01/01/18 21:00 01/31/18 20:59 Future Hold Atorvastatin Calcium (Lipitor Tab) 10 mg HS PO 01/01/18 21:00 01/31/18 20:59 Losartan Potassium (coZAAR TAB) 25 mg DAILY PO 01/01/18 09:00 01/31/18 08:59 01/01/18 08:42 25 MG Gabapentin (Neurontin Cap) 100 mg QAM PO 01/01/18 09:00 01/31/18 08:59 01/01/18 08:42 100 MG Potassium Chloride/Dextrose/ Sod Cl 1,000 ml @ 80 mls/hr [id number] IV 01/01/18 10:00 01/01/18 22:29 01/01/18 10:47 80 MLS/HR
[2018-01-01] MEDS ORDERED: PHARMACY GLYCEMIC MGMT CONSULT PRN (19:34)
--- NOTE | 2018-01-01 20:03 | Pharmacy Progress Note ---
Glycemic: Assessment & Plan Date of Service Jan 01, 2018. Assessment & Plan Reported Home Meds: * Jardiance 10mg po daily * Actos 30mg po daily * Janumet po BID * KlU6c=4.9% from 12/30/17 A/P: Patient had 2 hypoglycemic events in the last 24 hours. LVP changed to dextrose containing solution. Pharmacy glycemic consulted. Will continue to hold basal insulin (Lantus) and monitor BSGs closely thru the nite. Will reassess 01/02/18-am. * Basal insulin: Pt received Lantus 20 units sq x 1 12/30@2352 and Lantus 10 units sq x 1 dose last evening. Lantus currently on hold. * Correctional Insulin: Novolog Correction per scale ACHS, added recheck @ 0200 while Lantus on hold Goal Range: Low 140 mg/dL - High 180 mg/dL "Loosened" Correction Factor: 35 mg/dL/unit * Prandial insulin: Per carb ratio of 1 unit per 15 grams CHO consumed Pharmacy will continue to monitor patient daily and write orders per [facility] inpatient glycemic control protocol. Thanks. * Please note that the plan above was derived based on current level of insulin resistance and hospital stress. These recommendations are appropriate for inpatient admission only. Plan of care upon discharge will need to be reassessed to avoid potential outpatient hypo/hyperglycemia.
[2018-01-01] MEDS: DONEPEZIL HCL 10 MG TAB PO SCH (20:59)
[2018-01-01] MEDS: ATORVASTATIN 10 MG TAB PO SCH (20:59)
[2018-01-01] MEDS: DOCUSATE SODIUM/SENNA 50/8.6MG TAB PO SCH (21:00)
[2018-01-01] MEDS ORDERED: INSULIN GLARGINE SOLOSTAR 100 UNITS/ML 3 ML PEN SC SCH (21:00)
[2018-01-01] MEDS: RANITIDINE HCL 150 MG TAB PO SCH (21:00)
[2018-01-01] MEDS ORDERED: CEFTRIAXONE SOD INJ 1 GM ADDVIAL IM SCH (23:30)
[2018-01-02] MEDS: CEFTRIAXONE SOD INJ 1 GM in DEXTROSE 5% ADD-VANTAGE 50ML 50 ML IV SCH (01:04)
[2018-01-02] MEDS ORDERED: INSULIN ASPART 100 UNITS/ML 3 ML PEN SC SCH (02:00)
[2018-01-02] MEDS: LEVOTHYROXINE 25 MCG TAB PO SCH (05:24)
[2018-01-02] MEDS: HEPARIN SOD 5000 UNIT/0.5 ML CARP SQ SCH ×3 (05:33→22:01)
[2018-01-02 06:46] LABS: CALCIUM 8.8 mg/dl (8.5-10.1); CREATININE 0.95 mg/dl (0.60-1.20); POTASSIUM 4.4 mmol/L (3.5-5.1)
[2018-01-02 07:41] VITALS: BP 140/66; PULSE 63; TEMP 36.4
[2018-01-02] MEDS ORDERED: INSULIN GLARGINE SOLOSTAR 100 UNITS/ML 3 ML PEN SC ONE (07:45)
[2018-01-02] MEDS: INSULIN ASPART 100 UNITS/ML 3 ML PEN SC SCH ×4 (09:51→22:00)
[2018-01-02] MEDS: DULOXETINE HCL 20 MG CAP PO SCH (09:51)
[2018-01-02] MEDS: ASPIRIN 81 MG ECTAB PO SCH (09:51)
[2018-01-02] MEDS: LOSARTAN POTASSIUM 25 MG TAB PO SCH (09:52)
[2018-01-02] MEDS: GABAPENTIN 100 MG CAP PO SCH (09:52)
--- NOTE | 2018-01-02 09:57 | Pharmacy Progress Note ---
Glycemic Control Progress Note Date of Service Jan 02, 2018. Scope Glycemic Pharmacist consulted for glycemic control to write orders per [facility] inpatient glycemic control protocol. Objective Accuchecks BSG (last 24hrs): Test 01/01/18 10:01 01/01/18 10:44 01/01/18 12:15 01/01/18 17:45 Random Glucose 180 mg/dl (70-99) Bedside Glucose 150 mg/dl (70-90) 183 mg/dl (70-90) 174 mg/dl (70-90) Test 01/01/18 21:09 01/02/18 02:21 01/02/18 06:13 Bedside Glucose 246 mg/dl (70-90) 245 mg/dl (70-90) Random Glucose 231 mg/dl (70-99) HbA1c: Test 12/30/17 18:00 Hemoglobin A1c 9.9 % (4.5-5.6) H Recent Pertinent Medications The patient is currently receiving: * Basal insulin: On hold. Last dose Lantus was 10 units 3 PM * Correctional Insulin: Novolog Correction per scale ACHS Goal Range: Low 140 mg/dL - High 180 mg/dL Correction Factor: 35 mg/dL/unit * Prandial insulin: Per carb ratio of 1 unit per 15 grams CHO consumed * Oral Agents: On hold Outpatient Anti-Diabetic Meds Oral agents Sitagliptin/Metformin Actos Jardiance Insulin Tresiba Novolog Assessment & Plan ASSESSMENT: * 87 yo F admitted with HHS / UTI / AMS, started on insulin drip which was discontinued after BSG's normalized. * Severe hypoglycemia noted 01/01 AM - this was after Lantus 10 units the previous night. No Lantus administered 01/01. * AM fasting random BSG elevated today to 231 mg/dL - OK to resume Lantus but will do so at 50% reduced dose from previous * Tighten correction factor/carb ratio for now as basal insulin this AM will take time to work - anticipate need to loosen later today * Persistent hyperglycemia prior to lunch today noted - no additional change as Novolog for breakfast not admin until 09 and BSG prior to lunch obtained @ 1214 therefore insufficient amount of time for AM Novolog to take full effect before lunch BSG obtained PLAN FOR INPATIENT GLYCEMIC CONTROL: * Oral Agents * Continue to hold outpatient oral diabetes medications. * Basal insulin: Lantus SQ 5 units x1 now, then qAM based on BSG * 0 units for BSG less than 110 mg/dL * 5 units for BSG 110-140 mg/dL * 8 units for BSG greater than 140 mg/dL * Bolus insulin * NovoLog per scale ACHS or Q6hrs while NPO * Goal Range: Low 120 mg/dL - High 160 mg/dL * Correction Factor: 30 mg/dL/unit * Nutritional / Prandial insulin per carb ratio of 1 unit per 13 grams CHO consumed * Please note that the plan above was derived based on current level of insulin resistance and hospital stress. These recommendations are appropriate for inpatient admission only. Plan of care upon discharge will need to be reassessed to avoid potential outpatient hypo/hyperglycemia. Thank you.
[2018-01-02 15:54] VITALS: BP 100/49; PULSE 82; TEMP 36.7; O2SAT 97
--- NOTE | 2018-01-02 18:04 | Progress Note ---
Medicine Progress Note Date & Time of Visit: Jan 02, 2018 at 18:01. Subjective Pt was seen and examined Lying in bed with no distress Pt seems to be back to her baseline No abnormal behavior report Objective Last 8 Hrs Date Time Temp Pulse Resp B/P (MAP) Pulse Ox O2 Delivery O2 Flow Rate FiO2 01/02/18 15:54 36.7 82 16 100/49 (66) 97 Room Air 01/02/18 11:21 Room Air Physical Exam: General- No acute distress Head- atraumatic Eyes- PERRL, EOMI ENT- oropharynx clear Neck- supple, no JVD Lungs- Poor air entry Heart- regular rhythm Abdomen- normal bowel sound Extremities- no calf tenderness Neuro- demented Skin- warm & dry Laboratory Results: Last 24 Hours Test 01/01/18 19:48 01/01/18 21:09 01/02/18 02:21 01/02/18 06:13 Lactic Acid Level 1.4 mmol/L Bedside Glucose 246 mg/dl 245 mg/dl Sodium Level 141 mmol/L Potassium Level 4.4 mmol/L Chloride Level 110 mmol/L Carbon Dioxide Level 25 mmol/L Anion Gap 6.0 mmol/L Blood Urea Nitrogen 16 mg/dl Creatinine 0.95 mg/dl Est Creatinine Clear Calc Drug Dose 35.4 ml/min Estimated GFR () 62.0 Estimated GFR (Non- 53.5 BUN/Creatinine Ratio 16.8 Random Glucose 231 mg/dl Calcium Level 8.8 mg/dl Test 01/02/18 07:58 01/02/18 12:14 Bedside Glucose 222 mg/dl 263 mg/dl Assessment & Plan Altered mental status Meet sepsis criteria on admission Tachycardia, RR24, elevated lactic acid, positive UA) Possible related to UTI vs Hyperglycemia hyperosmolar syndrome lactic acid on admission 3.2 with normal procalcitonin Received IVF and ceftriaxone in the ER On ceftriaxone Blood cx no grow urine cx grew Group b beta strep Vital sign stable Continue monitor Stable Hyperglycemia hyperosmolar syndrome BS on admission above 600 Received IVF Received regular insulin On Lantus Sub BID Continue monitor BS 01/02 Hypoglycemia episode yesterday BS elevated pharmacy on board for glycemic management Continue monitor BS Acute renal failure Mostly related to hypovolemia Received IVF Creatine wnl Resolved Hypernatremia Related to low volume Na on admission 150 Received IVF then Na increase to 156 Na improved Continue monitor Na Resolved Diabetes type 2 Recent Hba1c 9.9 Uncontrolled Will need better diabetic control Episode of hypoglycemia monitor BS HTN Losartan on hold due to TREE BP stable Hypothyroidism Continue levothyroxine DVT px on heparin sub Code Status DNR Disposition Possible discharge tomorrow Current Inpatient Medications: Current Inpatient Medications Medications (Trade) Dose Ordered Sig/Mike Route Start Time Stop Time Status Last Admin Dose Admin Glucose (Glucose 40% Gel) 15-30 GRAMS 15 GRAMS... UD PRN PO 12/30/17 20:00 01/29/18 19:59 Glucose (Glucose Chew Tab) 4-8 Tablets 4 Tabl... UD PRN PO 12/30/17 20:00 01/29/18 19:59 Dextrose (Dextrose 50% 50ML Syringe) 25-50ML OF 50% DW IV FOR... UD PRN IV 12/30/17 20:00 01/29/18 19:59 01/01/18 09:59 25 ML Glucagon (Glucagon Inj) 1 mg UD PRN SQ 12/30/17 20:00 01/29/18 19:59 Heparin Sodium (Porcine) (Heparin Sq 5000 Unit/0.5ml) 5,000 unit Q8 SQ 12/31/17 06:00 01/30/18 05:59 01/02/18 13:26 5,000 UNIT Acetaminophen (Tylenol Tab) 650 mg Q4H PRN PO 12/31/17 01:00 01/30/18 00:59 Nitroglycerin (Nitrostat Tab) 0.4 mg UD PRN SL 12/31/17 01:00 01/30/18 00:59 Insulin Aspart (novoLOG ASPART) SLIDING SCALE If C... ACHS SC 12/31/17 07:00 01/30/18 06:59 01/02/18 13:26 6 UNITS Hydromorphone HCl (Dilaudid Inj) 0.5 mg Q3H PRN IV 12/31/17 01:00 01/14/18 00:59 Prochlorperazine Edisylate 5 mg/ Syringe 5 ml @ 5 mls/min Q6H PRN IV 12/31/17 01:00 01/30/18 00:59 Tramadol HCl (Ultram Tab) 25 mg Q6H PRN PO 12/31/17 01:00 01/30/18 00:59 Aspirin (Ecotrin Tab) 81 mg DAILY PO 12/31/17 09:00 01/30/18 08:59 01/02/18 09:51 81 MG Donepezil HCl (Aricept Tab) 10 mg HS PO 12/31/17 21:00 01/30/18 20:59 01/01/18 20:59 10 MG Duloxetine HCl (Cymbalta Cap) 40 mg DAILY PO 12/31/17 09:00 01/30/18 08:59 01/02/18 09:51 40 MG Levothyroxine Sodium (Synthroid Tab) 25 mcg DAILYBB PO 12/31/17 06:00 01/30/18 05:59 01/02/18 05:24 25 MCG Ranitidine HCl (zANTac TAB) 150 mg HS PO 12/31/17 21:00 01/30/18 20:59 01/01/18 21:00 150 MG Senna/Docusate Sodium (Senokot S Tab) 2 tab HS PO 12/31/17 21:00 01/30/18 20:59 01/01/18 21:00 2 TAB Miscellaneous Information (Order Awaiting Action) 1 ea QS N/A 12/31/17 08:00 01/30/18 07:59 Ceftriaxone Sodium 1 gm/ Dextrose 50 ml @ 100 mls/hr Q24H IV 01/01/18 01:00 01/11/18 00:59 01/02/18 01:04 100 MLS/HR Atorvastatin Calcium (Lipitor Tab) 10 mg HS PO 01/01/18 21:00 01/31/18 20:59 01/01/18 20:59 10 MG Losartan Potassium (coZAAR TAB) 25 mg DAILY PO 01/01/18 09:00 01/31/18 08:59 01/02/18 09:52 25 MG Gabapentin (Neurontin Cap) 100 mg QAM PO 01/01/18 09:00 01/31/18 08:59 01/02/18 09:52 100 MG Miscellaneous Information (Consult Glycemic Management Pharmacy) 1 ea UD PRN N/A 01/01/18 19:34 01/31/18 19:33 Insulin Glargine (Lantus Solostar Pen) QAM SC 01/03/18 09:00 02/02/18 08:59
[2018-01-02] MEDS: RANITIDINE HCL 150 MG TAB PO SCH (21:57)
[2018-01-02] MEDS: DONEPEZIL HCL 10 MG TAB PO SCH (21:57)
[2018-01-02] MEDS: ATORVASTATIN 10 MG TAB PO SCH (21:57)
[2018-01-02] MEDS: DOCUSATE SODIUM/SENNA 50/8.6MG TAB PO SCH (21:57)
[2018-01-02 23:00] VITALS: BP 94/51; PULSE 68; TEMP 36.3; O2SAT 98
[2018-01-03] MEDS: CEFTRIAXONE SOD INJ 1 GM in DEXTROSE 5% ADD-VANTAGE 50ML 50 ML IV SCH (01:04)
[2018-01-03] MEDS: LEVOTHYROXINE 25 MCG TAB PO SCH (05:35)
[2018-01-03] MEDS: HEPARIN SOD 5000 UNIT/0.5 ML CARP SQ SCH ×3 (05:36→21:50)
[2018-01-03 06:37] LABS: CALCIUM 8.8 mg/dl (8.5-10.1); CREATININE 0.94 mg/dl (0.60-1.20); POTASSIUM 4.5 mmol/L (3.5-5.1)
[2018-01-03 07:41] VITALS: BP 93/63; PULSE 78; TEMP 36.5; O2SAT 98
[2018-01-03] MEDS: INSULIN GLARGINE SOLOSTAR 100 UNITS/ML 3 ML PEN SC SCH (09:44)
[2018-01-03 09:45] VITALS: BP 102/64; PULSE 78
[2018-01-03] MEDS: DULOXETINE HCL 20 MG CAP PO SCH (09:45)
[2018-01-03] MEDS: INSULIN ASPART 100 UNITS/ML 3 ML PEN SC SCH ×4 (09:45→21:50)
[2018-01-03] MEDS: GABAPENTIN 100 MG CAP PO SCH (09:46)
[2018-01-03] MEDS: ASPIRIN 81 MG ECTAB PO SCH (09:46)
[2018-01-03] MEDS: LOSARTAN POTASSIUM 25 MG TAB PO SCH (09:46)
--- NOTE | 2018-01-03 11:26 | Pharmacy Progress Note ---
Glycemic Control Progress Note Date of Service Jan 03, 2018. Scope Glycemic Pharmacist consulted for glycemic control to write orders per [facility] inpatient glycemic control protocol. Objective Accuchecks BSG (last 24hrs): Test 01/02/18 12:14 01/02/18 17:16 01/02/18 20:52 01/03/18 05:48 Bedside Glucose 263 mg/dl (70-90) 177 mg/dl (70-90) 267 mg/dl (70-90) Random Glucose 283 mg/dl (70-99) Test 01/03/18 08:04 Bedside Glucose 277 mg/dl (70-90) HbA1c: Test 12/30/17 18:00 Hemoglobin A1c 9.9 % (4.5-5.6) H Recent Pertinent Medications The patient is currently receiving: * Basal insulin: Lantus was 5 units SC qAM * Correctional Insulin: Novolog Correction per scale ACHS Goal Range: Low 120 mg/dL - High 160 mg/dL Correction Factor: 30 mg/dL/unit * Prandial insulin: Per carb ratio of 1 unit per 13 grams CHO consumed * Oral Agents: On hold Assessment & Plan ASSESSMENT: 01/02/18 * 87 yo F admitted with HHS / UTI / AMS, started on insulin drip which was discontinued after BSG's normalized. * Severe hypoglycemia noted 01/01 AM - this was after Lantus 10 units the previous night. No Lantus administered 01/01. * AM fasting random BSG elevated today to 231 mg/dL - OK to resume Lantus but will do so at 50% reduced dose from previous * Tighten correction factor/carb ratio for now as basal insulin this AM will take time to work - anticipate need to loosen later today * Persistent hyperglycemia prior to lunch today noted - no additional change as Novolog for breakfast not admin until 0951 and BSG prior to lunch obtained @ 1214 therefore insufficient amount of time for AM Novolog to take full effect before lunch BSG obtained 01/03/18 * BSG's ranging 177-277 mg/dL over the last 24 hours - better control desired * Today's AM fasting BSG significantly elevated to 277 mg/dL, likely 2nd reduced dose of Lantus to 5 units yesterday AM. Increase warranted, however hesitant to increase significantly as dose of 10 units administered 12/31 PM caused BSG to 36 mg/dL on 3/16 AM. Will therefore only modestly increase * Correction factor admin at HS insufficient to decrease BSG's adequately - will tighten correction factor * Do not want to tighten CHO ratio too much as this may increase risk for hypoglycemia (especially as hepatic stores may be depleted evidenced by recent severe hypoglycemia), but will tighten slightly 2nd recent hyperglycemia PLAN FOR INPATIENT GLYCEMIC CONTROL: * Oral Agents * Continue to hold outpatient oral diabetes medications. * Increase basal insulin: Lantus qAM based on BSG * 5 units for BSG less than 110 mg/dL * 8 units for BSG 110-140 mg/dL * 10 units for BSG greater than 140 mg/dL * Bolus insulin * NovoLog per scale ACHS or Q6hrs while NPO * Decrease Goal Range: Low 120 mg/dL - High 150 mg/dL * Tighten Correction Factor: 25 mg/dL/unit * Tighten Nutritional / Prandial insulin per carb ratio of 1 unit per 12 grams CHO consumed * Please note that the plan above was derived based on current level of insulin resistance and hospital stress. These recommendations are appropriate for inpatient admission only. Plan of care upon discharge will need to be reassessed to avoid potential outpatient hypo/hyperglycemia. Thank you.
[2018-01-03 15:34] VITALS: BP 137/84; PULSE 75; TEMP 36.4; O2SAT 97
--- NOTE | 2018-01-03 17:25 | Progress Note ---
Medicine Progress Note Date & Time of Visit: Jan 03, 2018 at 17:14. Subjective Pt was seen and examined Lying in bed with no distress Pt is back to her baseline Good appetite Objective Last 8 Hrs Date Time Temp Pulse Resp B/P (MAP) Pulse Ox O2 Delivery O2 Flow Rate FiO2 01/03/18 15:34 36.4 75 19 137/84 (101) 97 Room Air 01/03/18 09:45 78 102/64 (77) Physical Exam: General- No acute distress Head- atraumatic Eyes- PERRL, EOMI ENT- oropharynx clear Neck- supple, no JVD Lungs- Poor air entry Heart- regular rhythm Abdomen- normal bowel sound Extremities- no calf tenderness Neuro- demented Skin- warm & dry Laboratory Results: Last 24 Hours Test 01/02/18 17:16 01/02/18 20:52 01/03/18 05:48 01/03/18 08:04 Bedside Glucose 177 mg/dl 267 mg/dl 277 mg/dl Sodium Level 140 mmol/L Potassium Level 4.5 mmol/L Chloride Level 109 mmol/L Carbon Dioxide Level 24 mmol/L Anion Gap 7.0 mmol/L Blood Urea Nitrogen 21 mg/dl Creatinine 0.94 mg/dl Est Creatinine Clear Calc Drug Dose 35.7 ml/min Estimated GFR () 62.8 Estimated GFR (Non- 54.2 BUN/Creatinine Ratio 22.0 Random Glucose 283 mg/dl Calcium Level 8.8 mg/dl Test 01/03/18 12:01 Bedside Glucose 262 mg/dl Assessment & Plan Altered mental status Meet sepsis criteria on admission Tachycardia, RR24, elevated lactic acid, positive UA) Possible related to UTI vs Hyperglycemia hyperosmolar syndrome lactic acid on admission 3.2 with normal procalcitonin Received IVF and ceftriaxone in the ER On ceftriaxone IV Blood cx no grow urine cx grew Group b beta strep Vital sign stable Continue monitor Stable Hyperglycemia hyperosmolar syndrome BS on admission above 600 Received IVF Received regular insulin On Lantus Sub BID Continue monitor BS 01/03 Hypoglycemia episode during hospital course BS elevated pharmacy on board for glycemic management Continue monitor BS Acute renal failure Mostly related to hypovolemia Received IVF Creatine wnl Resolved Hypernatremia Related to low volume Na on admission 150 Received IVF then Na increase to 156 Na 140 today Resolved Diabetes type 2 Recent Hba1c 9.9 Uncontrolled Will need better diabetic control Episode of hypoglycemia monitor BS HTN Losartan on hold due to TREE on admission Will resume losartan BP stable Hypothyroidism Continue levothyroxine DVT px on heparin sub Code Status DNR Disposition Will discharge tomorrow Current Inpatient Medications: Current Inpatient Medications Medications (Trade) Dose Ordered Sig/Mike Route Start Time Stop Time Status Last Admin Dose Admin Glucose (Glucose 40% Gel) 15-30 GRAMS 15 GRAMS... UD PRN PO 12/30/17 20:00 01/29/18 19:59 Glucose (Glucose Chew Tab) 4-8 Tablets 4 Tabl... UD PRN PO 12/30/17 20:00 01/29/18 19:59 Dextrose (Dextrose 50% 50ML Syringe) 25-50ML OF 50% DW IV FOR... UD PRN IV 12/30/17 20:00 01/29/18 19:59 01/01/18 09:59 25 ML Glucagon (Glucagon Inj) 1 mg UD PRN SQ 12/30/17 20:00 01/29/18 19:59 Heparin Sodium (Porcine) (Heparin Sq 5000 Unit/0.5ml) 5,000 unit Q8 SQ 12/31/17 06:00 01/30/18 05:59 01/03/18 13:40 5,000 UNIT Acetaminophen (Tylenol Tab) 650 mg Q4H PRN PO 12/31/17 01:00 01/30/18 00:59 Nitroglycerin (Nitrostat Tab) 0.4 mg UD PRN SL 12/31/17 01:00 01/30/18 00:59 Insulin Aspart (novoLOG ASPART) SLIDING SCALE If C... ACHS SC 12/31/17 07:00 01/30/18 06:59 01/03/18 13:40 9 UNITS Hydromorphone HCl (Dilaudid Inj) 0.5 mg Q3H PRN IV 12/31/17 01:00 01/14/18 00:59 Prochlorperazine Edisylate 5 mg/ Syringe 5 ml @ 5 mls/min Q6H PRN IV 12/31/17 01:00 01/30/18 00:59 Tramadol HCl (Ultram Tab) 25 mg Q6H PRN PO 12/31/17 01:00 01/30/18 00:59 Aspirin (Ecotrin Tab) 81 mg DAILY PO 12/31/17 09:00 01/30/18 08:59 01/03/18 09:46 81 MG Donepezil HCl (Aricept Tab) 10 mg HS PO 12/31/17 21:00 01/30/18 20:59 01/02/18 21:57 10 MG Duloxetine HCl (Cymbalta Cap) 40 mg DAILY PO 12/31/17 09:00 01/30/18 08:59 01/03/18 09:45 40 MG Levothyroxine Sodium (Synthroid Tab) 25 mcg DAILYBB PO 12/31/17 06:00 01/30/18 05:59 01/03/18 05:35 25 MCG Ranitidine HCl (zANTac TAB) 150 mg HS PO 12/31/17 21:00 01/30/18 20:59 01/02/18 21:57 150 MG Senna/Docusate Sodium (Senokot S Tab) 2 tab HS PO 12/31/17 21:00 01/30/18 20:59 01/02/18 21:57 2 TAB Miscellaneous Information (Order Awaiting Action) 1 ea QS N/A 12/31/17 08:00 01/30/18 07:59 Ceftriaxone Sodium 1 gm/ Dextrose 50 ml @ 100 mls/hr Q24H IV 01/01/18 01:00 01/11/18 00:59 01/03/18 01:04 100 MLS/HR Atorvastatin Calcium (Lipitor Tab) 10 mg HS PO 01/01/18 21:00 01/31/18 20:59 01/02/18 21:57 10 MG Losartan Potassium (coZAAR TAB) 25 mg DAILY PO 01/01/18 09:00 01/31/18 08:59 01/03/18 09:46 25 MG Gabapentin (Neurontin Cap) 100 mg QAM PO 01/01/18 09:00 01/31/18 08:59 01/03/18 09:46 100 MG Miscellaneous Information (Consult Glycemic Management Pharmacy) 1 ea UD PRN N/A 01/01/18 19:34 01/31/18 19:33 Insulin Glargine (Lantus Solostar Pen) QAM SC 01/03/18 09:00 02/02/18 08:59 01/03/18 09:44 8 UNITS
[2018-01-03] MEDS: RANITIDINE HCL 150 MG TAB PO SCH (21:45)
[2018-01-03] MEDS: DONEPEZIL HCL 10 MG TAB PO SCH (21:45)
[2018-01-03] MEDS: ATORVASTATIN 10 MG TAB PO SCH (21:45)
[2018-01-03] MEDS: DOCUSATE SODIUM/SENNA 50/8.6MG TAB PO SCH (21:45)
[2018-01-03 23:05] VITALS: BP 98/51; PULSE 80; TEMP 36.4; O2SAT 96
[2018-01-04] MEDS: CEFTRIAXONE SOD INJ 1 GM in DEXTROSE 5% ADD-VANTAGE 50ML 50 ML IV SCH (01:38)
[2018-01-04] MEDS: LEVOTHYROXINE 25 MCG TAB PO SCH (05:42)
[2018-01-04] MEDS: HEPARIN SOD 5000 UNIT/0.5 ML CARP SQ SCH ×2 (05:44→13:42)
[2018-01-04 07:41] VITALS: BP 85/50; PULSE 95; TEMP 36.4; O2SAT 96
[2018-01-04] MEDS: INSULIN GLARGINE SOLOSTAR 100 UNITS/ML 3 ML PEN SC SCH (09:41)
[2018-01-04] MEDS: INSULIN ASPART 100 UNITS/ML 3 ML PEN SC SCH ×3 (09:41→17:15)
[2018-01-04] MEDS: DULOXETINE HCL 20 MG CAP PO SCH (09:42)
[2018-01-04] MEDS: GABAPENTIN 100 MG CAP PO SCH (09:42)
[2018-01-04] MEDS: ASPIRIN 81 MG ECTAB PO SCH (09:42)
[2018-01-04] MEDS: LOSARTAN POTASSIUM 25 MG TAB PO SCH (09:43)
[2018-01-04 09:45] VITALS: BP 122/99
--- NOTE | 2018-01-04 12:10 | Pharmacy Progress Note ---
Pharmacy Glycemic Short Note 2 Date of Service Jan 04, 2018. OUTPATIENT ANTIDIABETIC REGIMEN: Oral agents Sitagliptin/Metformin Actos Jardiance Insulin Tresiba 15 units qHS Novolog ASSESSMENT: 01/04/18 * Ms. Gallgeos received 31 units of insulin yesterday * No changes to causes of insulin resistance * Fasting BS mg/dL - will need to increase basal * Postprandial BSGs: 262, 125, 166 - will loosen CF/CR slightly since basal being increased and to be more consistent w/ est TDD ~ 30 01/03/18 * BSG's ranging 177-277 mg/dL over the last 24 hours - better control desired * Today's AM fasting BSG significantly elevated to 277 mg/dL, likely 2nd reduced dose of Lantus to 5 units yesterday AM. Increase warranted, however hesitant to increase significantly as dose of 10 units administered 315 PM caused BSG to 36 mg/dL on 16 AM. Will therefore only modestly increase * Correction factor admin at HS insufficient to decrease BSG's adequately - will tighten correction factor * Do not want to tighten CHO ratio too much as this may increase risk for hypoglycemia (especially as hepatic stores may be depleted evidenced by recent severe hypoglycemia), but will tighten slightly 2nd recent hyperglycemia PLAN FOR INPATIENT GLYCEMIC CONTROL: * Hold outpatient oral diabetes medications * Basal insulin * Increase Lantus to 15 units qAM * Bolus insulin * NovoLog per scale ACHS or Q6hrs while NPO * Goal Range: Low 120 mg/dL - High 150 mg/dL * LOOSEN Correction Factor: 30 mg/dL/unit * LOOSEN Nutritional / Prandial insulin per carb ratio of 1 unit per 15 grams CHO consumed Recommendations for discharge: * CDE recommending discontinuation of orals based upon age/CrCl and change to set dose of Novolog w/ meals * I am in agreement with this, especially because it would streamline her therapy * Recommend the following: * Continue Tresiba 15 units qHS * Add Novolog 5 units with meals (hold if not eating) * D/C Jardiance * D/C Actos * D/C Janumet
--- NOTE | 2018-01-04 14:48 | Progress Note ---
Medicine Progress Note Date & Time of Visit: Jan 04, 2018 at 14:43. Subjective Pt was seen and examined Lying in bed with no distress Pt is very pleasant in bed No agitation Denies any chest pain Objective Last 8 Hrs Date Time Temp Pulse Resp B/P (MAP) Pulse Ox O2 Delivery O2 Flow Rate FiO2 01/04/18 09:45 122/99 (107) 01/04/18 08:15 Room Air 01/04/18 07:41 36.4 95 16 85/50 (62) 96 Room Air Physical Exam: General- No acute distress Head- atraumatic Eyes- PERRL, EOMI ENT- oropharynx clear Neck- supple, no JVD Lungs- Poor air entry Heart- regular rhythm Abdomen- normal bowel sound Extremities- no calf tenderness Neuro- demented Skin- warm & dry Laboratory Results: Last 24 Hours Test 01/03/18 17:11 01/03/18 21:10 01/04/18 08:09 Bedside Glucose 125 mg/dl 166 mg/dl 262 mg/dl Assessment & Plan Altered mental status Meet sepsis criteria on admission Tachycardia, RR24, elevated lactic acid, positive UA) Possible related to UTI vs Hyperglycemia hyperosmolar syndrome lactic acid on admission 3.2 with normal procalcitonin Received IVF and ceftriaxone in the ER On day 6 ceftriaxone IV Blood cx no grow urine cx grew Group b beta strep Vital sign stable Continue monitor Stable Hyperglycemia hyperosmolar syndrome BS on admission above 600 Received IVF Received regular insulin On Lantus Sub BID Continue monitor BS 01/04 Hypoglycemia episode during hospital course BS elevated pharmacy on board for glycemic management Case discussed with pharmacy that recommended to discontinue oral diabetes med Recommended to continue tresiba 15 units and novolog 5 units with each meal PCP will titrate insulin if needed Continue monitor BS Acute renal failure Mostly related to hypovolemia Received IVF Creatine wnl Resolved Hypernatremia Related to low volume Na on admission 150 Received IVF then Na increase to 156 Na 140 yesterday Resolved Diabetes type 2 Recent Hba1c 9.9 Uncontrolled Will need better diabetic control Episode of hypoglycemia monitor BS HTN Losartan on hold due to TREE on admission Will resume losartan BP stable Hypothyroidism Continue levothyroxine DVT px on heparin sub Code Status DNR Disposition Will discharge today Current Inpatient Medications: Current Inpatient Medications Medications (Trade) Dose Ordered Sig/Mike Route Start Time Stop Time Status Last Admin Dose Admin Glucose (Glucose 40% Gel) 15-30 GRAMS 15 GRAMS... UD PRN PO 12/30/17 20:00 01/29/18 19:59 Glucose (Glucose Chew Tab) 4-8 Tablets 4 Tabl... UD PRN PO 12/30/17 20:00 01/29/18 19:59 Dextrose (Dextrose 50% 50ML Syringe) 25-50ML OF 50% DW IV FOR... UD PRN IV 12/30/17 20:00 01/29/18 19:59 01/01/18 09:59 25 ML Glucagon (Glucagon Inj) 1 mg UD PRN SQ 12/30/17 20:00 01/29/18 19:59 Heparin Sodium (Porcine) (Heparin Sq 5000 Unit/0.5ml) 5,000 unit Q8 SQ 12/31/17 06:00 01/30/18 05:59 01/04/18 13:42 5,000 UNIT Acetaminophen (Tylenol Tab) 650 mg Q4H PRN PO 12/31/17 01:00 01/30/18 00:59 01/03/18 19:18 650 MG Nitroglycerin (Nitrostat Tab) 0.4 mg UD PRN SL 12/31/17 01:00 01/30/18 00:59 Insulin Aspart (novoLOG ASPART) SLIDING SCALE If C... ACHS SC 12/31/17 07:00 01/30/18 06:59 01/04/18 13:42 11 UNITS Hydromorphone HCl (Dilaudid Inj) 0.5 mg Q3H PRN IV 12/31/17 01:00 01/14/18 00:59 Prochlorperazine Edisylate 5 mg/ Syringe 5 ml @ 5 mls/min Q6H PRN IV 12/31/17 01:00 01/30/18 00:59 Tramadol HCl (Ultram Tab) 25 mg Q6H PRN PO 12/31/17 01:00 01/30/18 00:59 Aspirin (Ecotrin Tab) 81 mg DAILY PO 12/31/17 09:00 01/30/18 08:59 01/04/18 09:42 81 MG Donepezil HCl (Aricept Tab) 10 mg HS PO 12/31/17 21:00 01/30/18 20:59 01/03/18 21:45 10 MG Duloxetine HCl (Cymbalta Cap) 40 mg DAILY PO 12/31/17 09:00 01/30/18 08:59 01/04/18 09:42 40 MG Levothyroxine Sodium (Synthroid Tab) 25 mcg DAILYBB PO 12/31/17 06:00 01/30/18 05:59 01/04/18 05:42 25 MCG Ranitidine HCl (zANTac TAB) 150 mg HS PO 12/31/17 21:00 01/30/18 20:59 01/03/18 21:45 150 MG Senna/Docusate Sodium (Senokot S Tab) 2 tab HS PO 12/31/17 21:00 01/30/18 20:59 01/03/18 21:45 2 TAB Miscellaneous Information (Order Awaiting Action) 1 ea QS N/A 12/31/17 08:00 01/30/18 07:59 Ceftriaxone Sodium 1 gm/ Dextrose 50 ml @ 100 mls/hr Q24H IV 01/01/18 01:00 01/11/18 00:59 01/04/18 01:38 100 MLS/HR Atorvastatin Calcium (Lipitor Tab) 10 mg HS PO 01/01/18 21:00 01/31/18 20:59 01/03/18 21:45 10 MG Losartan Potassium (coZAAR TAB) 25 mg DAILY PO 01/01/18 09:00 01/31/18 08:59 01/04/18 09:43 25 MG Gabapentin (Neurontin Cap) 100 mg QAM PO 01/01/18 09:00 01/31/18 08:59 01/04/18 09:42 100 MG Miscellaneous Information (Consult Glycemic Management Pharmacy) 1 ea UD PRN N/A 01/01/18 19:34 01/31/18 19:33 Insulin Glargine (Lantus Solostar Pen) QAM SC 01/03/18 09:00 02/02/18 08:59 01/04/18 09:41 15 UNITS Insulin Aspart (novoLOG ASPART) SLIDING SCALE If C... 0200 ONCE SC 01/05/18 02:00 01/05/18 02:01
--- NOTE | 2018-01-04 15:03 | Discharge Instructions ---
Discharge Instructions Date of Service Jan 04, 2018. Admission Reason for Admission: Encephalopathy Discharge Discharge Diagnosis / Problem: ALTERED MENTAL STATUS, UTI, HYPOGLYCEMIA, DIABETES Discharge Goals Goal(s): Decrease discomfort, Improve function, Improve disease control Activity Recommendations Activity Limitations: resume your previous activity ( TOLERATED) . Instructions / Follow-Up Instructions / Follow-Up Follow up with your primary care provider at [facility] Continue physical therapy Monitor blood sugar your physician will titrate your diabetes medications if needed Current Hospital Diet Patient's current hospital diet: Diabetes Type 2 Diet, AHA Diet (Heart Healthy) Discharge Diet Recommended Diet: AHA Diet (Heart Healthy), Diabetes Type 2 Diet Pending Studies Studies pending at discharge: no Laboratory Results Hemoglobin A1c Test 12/30/17 18:00 Range/Units Estimated Average Glucose 237 mg/dl Hemoglobin A1c 9.9 H 4.5-5.6 % Medical Emergencies . Who to Call and When: Medical Emergencies: If at any time you feel your situation is an emergency, please call 911 immediately. . Non-Emergent Contact Non-Emergency issues call your: Primary Care Provider Call Non-Emergent contact if: you have any medication questions . . "Provider Documentation" section prepared by Rosalina Hurt. .
--- NOTE | 2018-01-04 15:12 | Discharge Summary ---
Discharge Summary Date of Service Jan 04, 2018. Discharge Summary Admission Date: Dec 31, 2017 at 00:23 Discharge Date: Jan 04, 2018 Discharge Disposition: half-way facility Principal Diagnosis: ALTERED MENTAL STATUS Secondary Diagnoses/Problems: UTI DM TYPE 2 HYPOGLYCEMIA ACUTE RENAL FAILURE HYPOTHYROIDISM HYPERNATREMIA HTN Procedures: CT SCAN OF THE ABDOMEN AND PELVIS WITHOUT IV CONTRAST CLINICAL HISTORY: Generalized abdominal pain. COMPARISON STUDY: No priors. TECHNIQUE: CT scan of the abdomen and pelvis is performed from the lung bases to the proximal femora. Images are reviewed in the axial, sagittal, and coronal planes. IV contrast was not administered for this examination as per the referring clinician. Note that the examination was performed in significantly suboptimal fashion without oral and IV contrast. The examination is also degraded by streak artifact from the arms which could not be elevated above the abdomen as well as by motion artifact.. A dose lowering technique was utilized adhering to the principles of ALARA. CT DOSE: 852.75 mGy.cm FINDINGS: Lung bases: The heart is normal in size and without pericardial effusion. The coronary arteries and mitral annulus are densely calcified. The lung bases are clear. There is a small hiatal hernia. Liver: The unenhanced liver is normal in size, contour, and attenuation. There is no intrahepatic biliary ductal dilatation. Gallbladder: Unremarkable. Spleen: Normal in size and attenuation. Pancreas: The unenhanced pancreas is atrophic and grossly unremarkable. Adrenal glands: Unremarkable. Kidneys: The unenhanced kidneys are atrophic and without hydronephrosis. There is a staghorn calculus in the right kidney. This measures up to 3.0 cm in maximum dimension. Mild urothelial thickening is noted in the right renal pelvis mild stranding suggested in the adjacent fat. No left renal calculi are identified. A calcification in the right hemipelvis on image #342 is likely posterior to the right ureter. There is no clear evidence of ureteral stone. A 3.2 cm cyst arises from the lower pole of the right kidney. Abdominal vasculature: The abdominal aorta is normal in course and caliber noting advanced atherosclerotic calcification. Bowel: There is rectosigmoid fecal impaction. Moderate constipation is observed. There is moderate to advanced colonic diverticulosis without CT evidence of acute diverticulitis. No bowel obstruction is seen. The appendix is not clearly identified. 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 Peritoneum: There is no intraperitoneal free air or abdominal ascites. There is a large fat-containing umbilical hernia. A fat-containing supraumbilical hernia is also identified. Lymphadenopathy: None. Pelvic viscera: The bladder is partially decompressed and grossly unremarkable. The uterus is surgically absent. No adnexal lesion is seen. Skeletal structures: The skeletal structures are osteopenic. There is moderate lumbosacral spondylosis and scoliosis. No lytic or blastic lesions are seen. IMPRESSION: 1. Suboptimal examination without oral and IV contrast. The examination is also compromised by streak and motion artifact. 2. There is a 3.0 cm staghorn calculus identified in the right renal pelvis. No hydronephrosis is seen. There is mild associated urothelial thickening with mild stranding in the parapelvic fat. Correlate clinically and with urinalysis for evidence of superimposed urinary tract infection. 3. No left renal calculi are identified. 4. There is rectosigmoid fecal impaction and moderate constipation. No bowel obstruction is seen. 5. Moderate to advanced colonic diverticulosis without CT evidence of acute diverticulitis. 6. Additional findings as above. Electronically signed by: Jesus Marinelli M.D. 12/30/2017 7:53 PM Dictated Date/Time: 12/30/2017 7:43 PM [~ rep ct add3]] CT SCAN OF THE BRAIN WITHOUT IV CONTRAST CLINICAL HISTORY: Change in mental status. COMPARISON STUDY: No priors. TECHNIQUE: Unenhanced axial CT scan of the brain is performed from the vertex to the skull base. A dose lowering technique was utilized adhering to the principles of ALARA. FINDINGS: Brain parenchyma: There are age-related involutional changes noting moderate patchy subcortical and periventricular microangiopathic change. There is no hemorrhage, mass effect, or evidence of acute territorial ischemia by CT criteria. Kim-white matter is preserved. No extra-axial fluid collection is seen. Mineralization is noted in the basal ganglia. Ventricles, sulci, cisterns: Prominent secondary to involutional change. Intracranial vasculature: There is atherosclerotic calcification of the cavernous carotid arteries. Calvarium: Unremarkable. Sinuses and mastoids: Fluid is noted in the right sphenoid sinus. The remaining visualized paranasal sinuses are clear. There are trace mastoid effusions. Orbits: The bony orbits are grossly intact. IMPRESSION: There is no hemorrhage, mass effect, or evidence of acute territorial ischemia by CT criteria. Electronically signed by: Jesus Marinelli M.D. 12/30/2017 7:30 PM Dictated Date/Time: 12/30/2017 7:28 PM [~ rep ct add3]] SINGLE VIEW CHEST CLINICAL HISTORY: Change in mental status. FINDINGS: An AP, portable, upright chest radiograph is obtained. No prior studies are available for comparison at the time of dictation. The examination is degraded by portable technique and patient rotation. The heart is top normal for projection and there is atherosclerotic calcification of the thoracic aorta. The pulmonary vasculature is noncongested. The mitral annulus is densely calcified. Nonspecific interstitial thickening is likely chronic. There is mild elevation of the right hemidiaphragm and bibasilar atelectasis. No airspace consolidation or large pleural effusion is identified. No pneumothorax is seen. The skeletal structures are osteopenic. Degenerative change and scoliosis are noted in the thoracic spine. IMPRESSION: No acute cardiopulmonary abnormality. Electronically signed by: Jesus Marinelli M.D. 12/30/2017 6:35 PM Dictated Date/Time: 12/30/2017 6:34 PM Medication Reconciliation Continued Medications: Acetaminophen (Tylenol) 500 Mg Tab 1000 MG PO Q6 PRN for Pain, TAB Aspirin (Aspirin Ec) 81 Mg Tab 81 MG PO DAILY Atorvastatin (Lipitor) 10 Mg Tab 10 MG PO HS, TAB Bisacodyl (Bisac-Evac) 10 Mg Sup 10 MG RE PRN UD for Constipation Donepezil HCl (Donepezil HCl) 10 Mg Tab 10 MG PO HS Duloxetine Hcl (Cymbalta) 20 Mg Cap 40 MG PO DAILY, CAP Ergocalciferol (Vitamin D 92740 Unit) 50,000 Unit Cap 1 TAB PO 2XSMONTH, CAP TAKE ON 1ST & 15TH OF MONTH Gabapentin (Neurontin) 100 Mg Cap 100 MG PO QAM, CAP Insulin Aspart (Novolog) 100 Units/Ml Inj 5 UNITS SQ AC with each meal Insulin Degludec (Tresiba Flextouch) 100 Unit/Ml Inj 15 UNIT SQ HS Levothyroxine Sodium (Levothyroxine Sodium) 25 Mcg Tab 1 TAB PO DAILY for 90 Days, #90 TAB 3 Refills Losartan Potassium (Cozaar) 25 Mg Tab 25 MG PO HS, TAB Magnesium Hydroxide (Milk Of Magnesia) 30 Ml Susp 30 ML PO PRN UD for Constipation, ML PRN FOR NO BM 3 DAYS Memantine Hcl (Namenda Xr) 28 Mg Cap 28 MG PO DAILY Menthol-Zinc Oxide (Risamine) 1 Oin Oin 1 APPLN TOP QS for RASH APPLY TO BUTTUCKS Ranitidine (Zantac) 150 Mg Tab 150 MG PO HS, TAB Sennosides-Docusate Sodium (Senexon-S) 1 Tab Tab 2 TABS PO HS Sodium Phosphate/Biphosphate (Fleet Enema) Maggy 1 EA NC DAILY PRN for Constipation, BTL Zinc Oxide (Topical) (Zinc Oxide) 20 % Oin 1 APPLN TOP HS [Stomahesive Pow] () 1 APPLN TOP HS APPLY TO PERINEAL AREA FOLLOWING ZINC @ HS Discontinued Medications: Empagliflozin (Jardiance) 10 Mg Tab 10 MG PO DAILY Pioglitazone (Actos) 30 Mg Tab 1 TAB PO DAILY for 90 Days, #90 TAB 3 Refills Sitagliptin-Metformin Hcl (Janumet) 1 Tab Tab 1 TAB PO BID for 90 Days, #180 TAB 3 Refills Admission Information HPI (per Admitting provider): HISTORY OF PRESENT ILLNESS: History obtained from patient, senior living staff, and records. Limited history obtained from patient secondary to demented state. Patient is a [facility] resident. 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 As per notes, yesterday, the patient noted to be lethargic, decreased appetite, noted to be pale. Blood sugars noted to be high. Blood pressure 60s-90s. Patient brought to Emergency Room. Blood sugars noted to be 587. The patient received ceftriaxone for possible UTI, IV insulin started for hyperglycemia. Physical Exam (per Admitting): PHYSICAL EXAMINATION: VITAL SIGNS: Blood pressure was noted to be 130/61, pulse rate noted to be 68, RR 18, temperature 36.6, sats 98 on room air. GENERAL: Noted to be demented, no respiratory distress. SKIN: Normal color, warm. HEENT: Pale palpebral conjunctivae, no ptosis. Dry mucosa. NECK: Supple, nontender. CHEST: Decreased effort. Nontender. HEART: Regular rate and rhythm, no murmur. ABDOMEN: Some distention, nontender. EXTREMITIES: No edema, no gross tenderness. No tenderness NEUROLOGIC: Demented. No facial symmetry . mild hearing impairment. Hospital Course Altered mental status Meet sepsis criteria on admission Tachycardia, RR24, elevated lactic acid, positive UA) Possible related to UTI vs Hyperglycemia hyperosmolar syndrome lactic acid on admission 3.2 with normal procalcitonin Received IVF and ceftriaxone in the ER On day 6 ceftriaxone IV Blood cx no grow urine cx grew Group b beta strep Vital sign stable Continue monitor Stable Hyperglycemia hyperosmolar syndrome BS on admission above 600 Received IVF Received regular insulin On Lantus Sub BID Continue monitor BS 01/04 Hypoglycemia episode during hospital course BS elevated pharmacy on board for glycemic management Case discussed with pharmacy that recommended to discontinue oral diabetes med Recommended to continue tresiba 15 units and novolog 5 units with each meal PCP will titrate insulin if needed Continue monitor BS Acute renal failure Mostly related to hypovolemia Received IVF Creatine wnl Resolved Hypernatremia Related to low volume Na on admission 150 Received IVF then Na increase to 156 Na 140 yesterday Resolved Diabetes type 2 Recent Hba1c 9.9 Uncontrolled Will need better diabetic control Episode of hypoglycemia monitor BS HTN Losartan on hold due to TREE on admission Will resume losartan BP stable Hypothyroidism Continue levothyroxine DVT px on heparin sub Code Status DNR Disposition Will discharge today Total time spent on discharge = 35 minutes This includes examination of the patient, discharge planning, medication reconciliation, and communication with other providers. Discharge Instructions Discharge Instructions Date of Service Jan 04, 2018. Admission Reason for Admission: Encephalopathy Discharge Discharge Diagnosis / Problem: ALTERED MENTAL STATUS, UTI, HYPOGLYCEMIA, DIABETES Discharge Goals Goal(s): Decrease discomfort, Improve function, Improve disease control Activity Recommendations Activity Limitations: resume your previous activity ( TOLERATED) . Instructions / Follow-Up Instructions / Follow-Up Follow up with your primary care provider at [facility] Fall precaution Continue physical therapy Monitor blood sugar your physician will titrate your diabetes medications if needed Current Hospital Diet Patient's current hospital diet: Diabetes Type 2 Diet, AHA Diet (Heart Healthy) Discharge Diet Recommended Diet: AHA Diet (Heart Healthy), Diabetes Type 2 Diet Pending Studies Studies pending at discharge: no Laboratory Results Hemoglobin A1c Test 12/30/17 18:00 Range/Units Estimated Average Glucose 237 mg/dl Hemoglobin A1c 9.9 H 4.5-5.6 % Medical Emergencies . Who to Call and When: Medical Emergencies: If at any time you feel your situation is an emergency, please call 911 immediately. . Non-Emergent Contact Non-Emergency issues call your: Primary Care Provider Call Non-Emergent contact if: you have any medication questions . . "Provider Documentation" section prepared by Rosalina Hurt. . Additional Copies To Amparo Alvarez M.D.
[2018-01-04 15:20] VITALS: BP 102/90; PULSE 67; TEMP 36.9; O2SAT 96
[2018-01-04 16:32] VITALS: BP 102/90; PULSE 67; TEMP 36.9; O2SAT 96
[2018-01-05] MEDS ORDERED: INSULIN ASPART 100 UNITS/ML 3 ML PEN SC ONE (02:00)
== END 2018-01-04 19:16 | DRG 871 ==
LOC: EDBD 17:47 → C.EDB 17:51 → C.2T 12-31 00:23 → ENRESERV 01-01 01:02 → C.MSN 01-01 01:51
PROVIDERS: ADMIT Internal Medicine; ATTEND Internal Medicine
DX: A41.9 Sepsis, unspecified organism (principal); E11.00 Type 2 diabetes mellitus with hyperosmolarity without nonketotic hyperglycemic-hyperosmolar coma (NKHHC); N39.0 Urinary tract infection, site not specified; E87.0 Hyperosmolality and hypernatremia; N17.9 Acute kidney failure, unspecified; I10 Essential (primary) hypertension; E86.1 Hypovolemia; E11.65 Type 2 diabetes mellitus with hyperglycemia; R41.0 Disorientation, unspecified; F03.90 Unspecified dementia, unspecified severity, without behavioral disturbance, psychotic disturbance, mood disturbance, and anxiety; E11.649 Type 2 diabetes mellitus with hypoglycemia without coma; Z66 Do not resuscitate; Z79.4 Long term (current) use of insulin; Z79.82 Long term (current) use of aspirin; Z79.84 Long term (current) use of oral hypoglycemic drugs; Z79.899 Other long term (current) drug therapy; Z88.0 Allergy status to penicillin